=== PATIENT | female | born 1965 | race Caucasian/White ===

== ENCOUNTER 2016-11-13 14:58 | Emergency (ER) | payer MEDICAID | END 2016-11-13 17:35 | disposition home or self-care (01) | LOC: D.ER 14:58 | DX: S63.501A Unspecified sprain of right wrist, initial encounter (principal); W19.XXXA Unspecified fall, initial encounter; Y93.89 Activity, other specified; Y92.019 Unspecified place in single-family (private) house as the place of occurrence of the external cause; S70.01XA Contusion of right hip, initial encounter ==

== ENCOUNTER 2020-07-17 18:00 | Emergency (ER) | payer MEDICAID ==
[~2020-07-17] VITALS: Ht 152.4 cm; Wt 95.5 kg
[2020-07-17 18:07] VITALS: Ht 152.4 cm; Wt 95.5 kg
[2020-07-17] MEDS ORDERED: MOBIC7.5 MG PO ×2 (18:08→20:22)
[2020-07-17] MEDS ORDERED: NEURONTIN800 MG PO (18:09)
[2020-07-17] MEDS ORDERED: CELEXA20 MG PO (18:09)
[2020-07-17] MEDS ORDERED: KLONOPIN0.5 MG PO (18:10)
[2020-07-17] MEDS ORDERED: CYCLOBENZAPRINE10 MG PO (18:10)
[2020-07-17 18:53] LABS: BASOPHILS 0.3 % (0-2); EOSINOPHILS 1.6 % (0-7); HEMATOCRIT 38.2 % (36.0-48.0); HEMOGLOBIN 12.4 g/dL (12-16); IMMATURE GRANULOCYTES 0.4 % (0-5); LYMPHOCYTES 29.8 % (15-50); MCH 27.5 pg (26.0-34.0); MCHC 32.5 g/dL (31.0-37.0); MCV 84.7 fL (80.0-100.0); MEAN PLATELET VOLUME 9.5 fL (7.4-10.4); MONOCYTES 5.3 % (2-11); NEUTROPHILS 62.6 % (40-80); PLATELET COUNT 323 10x3/uL (130-400); RBC 4.51 10x6/uL (4.00-5.40); RDW 13.8 % (11.5-14.5); WBC 10.5 10x3/uL (4.8-10.8)
[2020-07-17 19:05] LABS: CALC OSMOLALITY 287 mosm/kg (275-300); CALCIUM 8.7 mg/dL (8.5-10.1); CARBON DIOXIDE 27.6 mmol/L (21.0-32.0); CHLORIDE - SERUM 107 mmol/L (98-107); CREATININE - SERUM 0.8 mg/dL (0.6-1.3); GLUCOSE 133 mg/dL (74-106); POTASSIUM - SERUM 3.7 mmol/L (3.5-5.1); SODIUM 143 mmol/L (136-145); UREA NITROGEN 14 mg/dL (7-18); eGFR NON AFRICAN AMERICAN 79 mL/min (90-120)
[2020-07-17 19:19] LABS: ALBUMIN 3.1 g/dL (3.4-5.0); ALKALINE PHOSPHATASE 57 U/L (30-120); ALT (SGPT) 18 U/L (10-68); BILIRUBIN - TOTAL 0.14 mg/dL (0.2-1.3); PROTEIN - SERUM 6.7 g/dL (6.4-8.2)
[2020-07-17 19:27] LABS: APTT 26.9 SECONDS (22.8-39.4); INR 0.88 (0.85-1.17); PROTIME 11.9 SECONDS (11.6-15.0)
[2020-07-17 20:30] VITALS: BP 132/84
== END 2020-07-17 19:20 | disposition home or self-care (01) ==
LOC: D.ER 18:00
PROVIDERS: Family Medicine
DX: M54.31 Sciatica, right side (principal); M54.10 Radiculopathy, site unspecified; M79.661 Pain in right lower leg

== ENCOUNTER 2020-07-27 14:17 | Inpatient (IN) | payer MEDICAID ==
[~2020-07-27] VITALS: Ht 152.4 cm; Wt 90.7 kg
[~2020-07-27 14:17] MED LIST: CELEXA20 MG PO; CYCLOBENZAPRINE10 MG PO; KLONOPIN0.5 MG PO; MOBIC7.5 MG PO; NEURONTIN800 MG PO
[2020-07-27 15:19] LABS: BILIRUBIN NEGATIVE (NEGATIVE); KETONE NEGATIVE (NEGATIVE); NITRITE NEGATIVE (NEGATIVE); UROBILINOGEN NORMAL mg/dL (< 2)
[2020-07-27 15:22] LABS: BACTERIA MANY HPF (NONE SEEN); WHITE CELLS - URINE >50 HPF (0-4)
[2020-07-27 15:34] LABS: BASOPHILS 1.1 % (0-2); EOSINOPHILS 7.5 % (0-7); HEMATOCRIT 37.2 % (36.0-48.0); HEMOGLOBIN 12.5 g/dL (12-16); IMMATURE GRANULOCYTES 2.2 % (0-5); LYMPHOCYTES 23.4 % (15-50); MCH 27.6 pg (26.0-34.0); MCHC 33.6 g/dL (31.0-37.0); MCV 82.1 fL (80.0-100.0); MEAN PLATELET VOLUME 9.5 fL (7.4-10.4); MONOCYTES 7.9 % (2-11); NEUTROPHILS 57.9 % (40-80); RBC 4.53 10x6/uL (4.00-5.40); RDW 14.2 % (11.5-14.5); WBC 10.9 10x3/uL (4.8-10.8)
[2020-07-27 15:35] LABS: PLATELET COUNT 211 10x3/uL (130-400)
[2020-07-27 15:58] LABS: ANION GAP 13.8 mmol/L (8-16); CALCIUM 7.6 mg/dL (8.5-10.1); CARBON DIOXIDE 21.5 mmol/L (21.0-32.0); POTASSIUM - SERUM 3.3 mmol/L (3.5-5.1)
--- NOTE | 2020-07-27 16:00 | NUR ---
NS STOP TIME CHARTED INCCORECTLY, STOP TIME FOR NS BOLUS WAS 1600 ZOSYN STOP TIME WAS 191
[2020-07-27 16:05] LABS: ALBUMIN 2.2 g/dL (3.4-5.0); BILIRUBIN - TOTAL 1.24 mg/dL (0.2-1.3); PROTEIN - SERUM 5.8 g/dL (6.4-8.2)
--- NOTE | 2020-07-27 21:03 | NUR ---
ARRIVED TOP FLOOR VIA WC. NO ACUTE DISTRESS NOTED. CONTINUING TO MONITOR
[2020-07-27 21:18] VITALS: BP 97/78; BMI 39.1
[2020-07-27 23:55] VITALS: BP 125/51
[2020-07-28 04:12] VITALS: BP 98/55
[2020-07-28 05:45] LABS: BASOPHILS 0.8 % (0-2); EOSINOPHILS 6.2 % (0-7); HEMATOCRIT 34.4 % (36.0-48.0); HEMOGLOBIN 11.2 g/dL (12-16); IMMATURE GRANULOCYTES 2.4 % (0-5); LYMPHOCYTES 20.8 % (15-50); MCH 27.2 pg (26.0-34.0); MCHC 32.6 g/dL (31.0-37.0); MCV 83.5 fL (80.0-100.0); MEAN PLATELET VOLUME 9.6 fL (7.4-10.4); MONOCYTES 11.5 % (2-11); NEUTROPHILS 58.3 % (40-80); PLATELET COUNT 220 10x3/uL (130-400); RBC 4.12 10x6/uL (4.00-5.40); RDW 14.7 % (11.5-14.5); WBC 13.2 10x3/uL (4.8-10.8)
[2020-07-28 05:47] LABS: ALBUMIN 2.1 g/dL (3.4-5.0); ANION GAP 13.6 mmol/L (8-16); BILIRUBIN - TOTAL 1.52 mg/dL (0.2-1.3); CALCIUM 7.4 mg/dL (8.5-10.1); CARBON DIOXIDE 22.4 mmol/L (21.0-32.0); CREATININE - SERUM 3.5 mg/dL (0.6-1.3); PROTEIN - SERUM 5.5 g/dL (6.4-8.2)
[2020-07-28 08:55] VITALS: BP 148/73
[2020-07-28 12:57] VITALS: BP 136/77
[2020-07-28 13:51] VITALS: BMI 39.0
[2020-07-28 16:12] VITALS: Ht 152.4 cm; Wt 90.7 kg
[2020-07-28 18:08] VITALS: BP 124/78
[2020-07-28 20:00] VITALS: BP 119/59; BP 136/82
--- NOTE | 2020-07-28 20:13 | NUR ---
PT WAS FOUND WALKING DOWN [address] LOOKING FOR A WAY TO GO DOWN STAIRS. SHE WAS TAKEN BACK TO HER ROOM AND A POSY PAD PUT ON HER BED AND THE ALARM TURNED ON. NO ACUTE DISTRESS NOTED. SHE IS CONFUSED ABOUT HER LOCATION AT TIMES. CONTINUING TO MONITOR
[2020-07-29] VITALS: BP 153/90
[2020-07-29 04:00] VITALS: BP 152/84
--- NOTE | 2020-07-29 05:59 | NUR ---
I have reviewed this patient and I concur with the Shift Assessment completed by the Licensed Practical Nurse today this shift.
[2020-07-29 07:11] LABS: ALBUMIN 1.8 g/dL (3.4-5.0); ANION GAP 15.4 mmol/L (8-16); BILIRUBIN - TOTAL 1.08 mg/dL (0.2-1.3); CALCIUM 7.3 mg/dL (8.5-10.1); CARBON DIOXIDE 20.8 mmol/L (21.0-32.0); CREATININE - SERUM 2.3 mg/dL (0.6-1.3); POTASSIUM - SERUM 4.2 mmol/L (3.5-5.1)
[2020-07-29 07:35] LABS: BASOPHILS 0.9 % (0-2); HEMOGLOBIN 10.9 g/dL (12-16); IMMATURE GRANULOCYTES 3.4 % (0-5); LYMPHOCYTES 23.7 % (15-50); MCH 27.6 pg (26.0-34.0); MCV 83.5 fL (80.0-100.0); MEAN PLATELET VOLUME 9.2 fL (7.4-10.4); MONOCYTES 9.8 % (2-11); NEUTROPHILS 53.2 % (40-80); PLATELET COUNT 224 10x3/uL (130-400); RBC 3.95 10x6/uL (4.00-5.40); RDW 15.2 % (11.5-14.5); WBC 12.5 10x3/uL (4.8-10.8)
[2020-07-29 09:08] VITALS: BP 176/104
--- NOTE | 2020-07-29 11:14 | NUR ---
IV STARTED THIS AM, YVETTE WELL, NO DISTRESS NOTED, FED BREAKFAST SO TEST POSTPONED TILL THIS BOUBACAR, CONT TO MONITOR
[2020-07-29 12:14] VITALS: BP 145/67
[2020-07-29 17:07] VITALS: BP 157/79
[2020-07-29 18:24] LABS: BILIRUBIN NEGATIVE (NEGATIVE); KETONE NEGATIVE (NEGATIVE); NITRITE NEGATIVE (NEGATIVE)
[2020-07-29 18:38] LABS: CREATININE - URINE 53.6 mg/dL (30-125); PRO/CRE RATIO URINE 0.7 mg/g; PROTEIN - URINE 38.9 mg/dL (0.0-11.9)
[2020-07-29 20:00] VITALS: BP 115/90
[2020-07-30] VITALS: BP 168/83
--- NOTE | 2020-07-30 01:17 | NUR ---
TEMP DOWN TO 102.1 AFTER TYLENOL GIVEN. BATHED AND COVERS REMOVED. WILL CONTINUE TO MONITOR HEADACHE BETTER. CALL LIGHT IN REACH
[2020-07-30 04:00] VITALS: BP 150/88
[2020-07-30 06:29] LABS: BASOPHILS 0.9 % (0-2); EOSINOPHILS 8.9 % (0-7); HEMOGLOBIN 10.7 g/dL (12-16); LYMPHOCYTES 25.1 % (15-50); MCH 27.5 pg (26.0-34.0); MCHC 33.4 g/dL (31.0-37.0); MCV 82.3 fL (80.0-100.0); MEAN PLATELET VOLUME 9.1 fL (7.4-10.4); MONOCYTES 12.4 % (2-11); NEUTROPHILS 49.7 % (40-80); PLATELET COUNT 246 10x3/uL (130-400); RBC 3.89 10x6/uL (4.00-5.40); WBC 13.8 10x3/uL (4.8-10.8)
[2020-07-30 07:26] LABS: ALBUMIN 1.8 g/dL (3.4-5.0); ANION GAP 13.3 mmol/L (8-16); BILIRUBIN - TOTAL 1.29 mg/dL (0.2-1.3); CALCIUM 7.6 mg/dL (8.5-10.1); CARBON DIOXIDE 20.8 mmol/L (21.0-32.0); CREATININE - SERUM 1.5 mg/dL (0.6-1.3); MAGNESIUM - SERUM 1.6 mg/dL (1.8-2.4); POTASSIUM - SERUM 4.1 mmol/L (3.5-5.1); PROTEIN - SERUM 4.9 g/dL (6.4-8.2)
[2020-07-30 09:25] VITALS: BP 159/80
[2020-07-30 13:10] VITALS: BP 158/88
--- NOTE | 2020-07-30 13:43 | MORECARE ---
CASE MANAGEMENT DISCHARGE SUMMARY PATIENT: IRENE CARTER UNIT: [id number] ADM DATE: 07/27/20 AGE: 55 : 69 SEX: F ROOM/BED: D.2207 AUTHOR: KRISH ROMAN PHYSICIAN: REFERRING PHYSICIAN: SMILEY FAJARDO DO DATE OF SERVICE: 07/30/20 Discharge Plan Patient Name: IRENE CARTER [facility] [facility] 1965 Planned Disposition: Home Anticipated Discharge Date: Discharge Date: Expected LOS: Initial Reviewer: [email or web address] Initial Review Date: 07/27/2020 Generated: 07/30/20 2:42 pm DCPIA - Discharge Planning Initial Assessment Updated by [email or web address]: Megan Jacobo on 07/30/20 1:38 pm * Is the patient Alert and Oriented? Yes * PCP SERINA * Pharmacy [facility] ON [facility] * Preadmission Environment Home with Family * ADLs Independent * Equipment Oxygen * List name and contact numbers for known caregivers / representatives who currently or will assist patient after discharge: YAKOV CARTER [phone] * Verbal permission to speak to the caregivers and representatives has been obtained from the patient. N/A * Community resources currently utilized None * Additional services required to return to the preadmission environment? No * Can the patient safely return to the preadmission environment? Yes * Has this patient been hospitalized within the prior 30 days at any hospital? No Patient Name: IRENE CARTER Page 41696 at 1343 All edits/amendments must be made on the electronic document DICTATION DATE: 07/30/20 1343 AUTOMOTIVE TIRE TESTING SUPERVISOR: CARMEL 07/30/20 1343 RPT#: [id number] DC DATE: STATUS: ADM IN [facility] [address] [place] [address] END OF REPORT
--- NOTE | 2020-07-30 13:54 | MORECARE ---
CASE MANAGEMENT DISCHARGE SUMMARY PATIENT: IRENE CARTER UNIT: [id number] ADM DATE: 07/27/20 AGE: 55 : 69 SEX: F ROOM/BED: D.2207 AUTHOR: KRISH ROMAN PHYSICIAN: REFERRING PHYSICIAN: SMILEY FAJARDO DO DATE OF SERVICE: 07/30/20 Discharge Plan Patient Name: IRENE CARTER Facility: [facility]:[place] : 1965 Planned Disposition: Home Anticipated Discharge Date: Discharge Date: Expected LOS: Initial Reviewer: [email or web address] Initial Review Date: 07/27/2020 Generated: 07/30/20 2:53 pm Comments DCP- Discharge Planning Updated by [id number]: Megan Jacobo on 07/30/20 12:[address] Patient Name: IRENE CARTER Admission Status: ER Accout number: [id number] Admission Date: 07-27-2020 : 1965 Admission Diagnosis:ACUTE KIDNEY FAILURE, UNSPECIFIED Attending: SMILEY FAJARDO Current LOS: 3 Anticipated DC Date: Planned Disposition: Home Primary Insurance: MEDICAID [place] Discharge Planning Comments: CM met with patient to complete initial dc planning assessment. CM educated patient on the CM role and verbal consent given by patient to complete assessment. Patient lives at home with her spouse where she is independent with her care. At discharge patient plans to return home and feels this is a safe discharge. CM discussed availability of home health, rehab services, and medical equipment. She stated that she has home O2 that she wears at night from [facility]. She stated that she is in the process on getting a CPAP. Her will be her compressed air pile driver operator home when she is discharged. Patient denied known discharge needs at this time. CM will continue to follow and will assist as needed with dc plans/needs. Outside Parts Salesman: Megan Jacobo DCPIA - Discharge Planning Initial Assessment Updated by [email or web address]: Megan Jacobo on 07/30/20 1:38 pm * Is the patient Alert and Oriented? Yes * PCP SERINA * Pharmacy [facility] ON [address] * Preadmission Environment Home with Family * ADLs Independent * Equipment Oxygen * List name and contact numbers for known caregivers / representatives who currently or will assist patient after discharge: YAKOV CARTER [phone] * Verbal permission to speak to the caregivers and representatives has been obtained from the patient. N/A * Community resources currently utilized None * Additional services required to return to the preadmission environment? No * Can the patient safely return to the preadmission environment? Yes * Has this patient been hospitalized within the prior 30 days at any hospital? No Last DP export: 07/30/20 12:43 p Patient Name: IRENE CARTER Page 85152 at 1354 All edits/amendments must be made on the electronic document DICTATION DATE: 07/30/20 135 MACHINE STONE POLISHER: CARMEL 07/30/20 1353 RPT#: [id number] DC DATE: STATUS: ADM IN [facility] [address] [place] [address] END OF REPORT
[2020-07-30 17:48] VITALS: BP 183/97
[2020-07-31] VITALS (12 sets, daily range): BP systolic 126–192; BP diastolic 64–95
[2020-07-31 06:43] LABS: BASOPHILS 1.1 % (0-2); EOSINOPHILS 10.8 % (0-7); HEMATOCRIT 32.2 % (36.0-48.0); HEMOGLOBIN 10.6 g/dL (12-16); IMMATURE GRANULOCYTES 3.6 % (0-5); LYMPHOCYTES 28.4 % (15-50); MCHC 32.9 g/dL (31.0-37.0); MCV 82.1 fL (80.0-100.0); MONOCYTES 12.8 % (2-11); NEUTROPHILS 43.3 % (40-80); PLATELET COUNT 269 10x3/uL (130-400); RBC 3.92 10x6/uL (4.00-5.40); RDW 15.2 % (11.5-14.5); WBC 14.1 10x3/uL (4.8-10.8)
[2020-07-31 07:14] LABS: ANION GAP 14.2 mmol/L (8-16); BILIRUBIN - TOTAL 1.01 mg/dL (0.2-1.3); CALCIUM 7.6 mg/dL (8.5-10.1); CARBON DIOXIDE 21.9 mmol/L (21.0-32.0); CREATININE - SERUM 1.2 mg/dL (0.6-1.3); MAGNESIUM - SERUM 1.5 mg/dL (1.8-2.4); POTASSIUM - SERUM 4.1 mmol/L (3.5-5.1); PROTEIN - SERUM 5.1 g/dL (6.4-8.2)
--- NOTE | 2020-07-31 11:40 | NUR ---
1138 - PT REPORTS VERY NAUSEOUS. ORDERS RECEIVED
--- NOTE | 2020-07-31 13:17 | NUR ---
Nutrition follow-up: Pt out of room for lap lucina at time of RD visit NPO for surgery Labs reviewed Wt: 199# RDN will monitor patients diet advancement and tolerance. RDN following.
--- NOTE | 2020-07-31 20:00 | NUR ---
PATIENT RESTING IN BED WITH AT BEDSIDE. NO S/S OF ACUTE DISTRESS. NO C/O AT THIS TIME. PATIENT IS ON 1L OF O2. PATIENT HAS RIGHT FOREARM, NORMAL SALINE @ 125 ML/HR. IV IS PATENT WITHOUT REDNESS, SWELLING, OR TENDERNESS. PATIENT HAS 4 LAP SITES ON ABDOMEN. PATIENT IS UP AD KILLIAN TO THE BATHROOM. CALL LIGHT WITHIN REACH. WILL CONTINUE TO MONITOR.
--- NOTE | 2020-08-01 01:56 | NUR ---
I have reviewed this patient and I concur with the Shift Assessment completed by the Licensed Practical Nurse today this shift.
[2020-08-01 05:46] LABS: BASOPHILS 0.3 % (0-2); EOSINOPHILS 0.3 % (0-7); HEMATOCRIT 30.4 % (36.0-48.0); HEMOGLOBIN 9.8 g/dL (12-16); IMMATURE GRANULOCYTES 2.6 % (0-5); LYMPHOCYTES 19.3 % (15-50); MCH 26.9 pg (26.0-34.0); MCHC 32.2 g/dL (31.0-37.0); MCV 83.5 fL (80.0-100.0); MEAN PLATELET VOLUME 9.2 fL (7.4-10.4); MONOCYTES 10.8 % (2-11); NEUTROPHILS 66.7 % (40-80); PLATELET COUNT 314 10x3/uL (130-400); RBC 3.64 10x6/uL (4.00-5.40); RDW 15.7 % (11.5-14.5); WBC 14.6 10x3/uL (4.8-10.8)
[2020-08-01 05:57] VITALS: BP 154/76
[2020-08-01 06:03] LABS: ALBUMIN 2.1 g/dL (3.4-5.0); ANION GAP 11.3 mmol/L (8-16); BILIRUBIN - TOTAL 0.66 mg/dL (0.2-1.3); CALCIUM 7.9 mg/dL (8.5-10.1); CARBON DIOXIDE 23.2 mmol/L (21.0-32.0); CREATININE - SERUM 1.1 mg/dL (0.6-1.3); MAGNESIUM - SERUM 1.7 mg/dL (1.8-2.4); POTASSIUM - SERUM 4.5 mmol/L (3.5-5.1); PROTEIN - SERUM 5.7 g/dL (6.4-8.2)
[2020-08-01 09:27] VITALS: BP 187/88
[2020-08-01 12:00] VITALS: BP 145/76
[2020-08-01] MEDS ORDERED: ULTRAM50 MG PO ×3 (14:09→14:12)
--- NOTE | 2020-08-01 15:07 | NUR ---
DISCHARGE PAPERWORK SIGNED, ALL QUESTIONS ANSWERED. IV TO RIGHT FOREARM DC'D, TIP INTACT. ESCORTED OUT VIA WHEELCHAIR.
--- NOTE | 2020-08-03 08:47 | MORECARE ---
CASE MANAGEMENT DISCHARGE SUMMARY PATIENT: IRENE CARTER UNIT: [id number] ADM DATE: 07/27/20 AGE: 55 : 69 SEX: F ROOM/BED: D.2207 AUTHOR: KRISH ROMAN PHYSICIAN: REFERRING PHYSICIAN: SMILEY FAJARDO DO DATE OF SERVICE: 08/03/20 Discharge Plan Patient Name: IRENE CARTER Facility: [facility]:[place] : 1965 Planned Disposition: Home Anticipated Discharge Date: Discharge Date: 08/01/2020 Expected LOS: Initial Reviewer: [email or web address] Initial Review Date: 07/27/2020 Generated: 08/03/20 9:47 am DCP- Discharge Planning Updated by [email or web address]: Megan Jacobo on 07/30/20 12:[address] Patient Name: IRENE CARTER Admission Status: ER Accout number: [id number] Admission Date: 07-27-2020 : 1965 Admission Diagnosis:ACUTE KIDNEY FAILURE, UNSPECIFIED Attending: SMILEY FAJARDO Current LOS: 3 Anticipated DC Date: Planned Disposition: Home Primary Insurance: MEDICAID [place] Discharge Planning Comments: CM met with patient to complete initial dc planning assessment. CM educated patient on the CM role and verbal consent given by patient to complete assessment. Patient lives at home with her spouse where she is independent with her care. At discharge patient plans to return home and feels this is a safe discharge. CM discussed availability of home health, rehab services, and medical equipment. She stated that she has home O2 that she wears at night from [facility]. She stated that she is in the process on getting a CPAP. Her will be her jukebox route driver home when she is discharged. Patient denied known discharge needs at this time. CM will continue to follow and will assist as needed with dc plans/needs. Dance Studio Manager: Megan Jacobo DCPIA - Discharge Planning Initial Assessment Updated by [email or web address]: Megan Jacobo on 07/30/20 1:38 pm * Is the patient Alert and Oriented? Yes * PCP SERINA * Pharmacy [facility] [address] * Preadmission Environment Home with Family * ADLs Independent * Equipment Oxygen * List name and contact numbers for known caregivers / representatives who currently or will assist patient after discharge: YAKOV CARTER [phone] * Verbal permission to speak to the caregivers and representatives has been obtained from the patient. N/A * Community resources currently utilized None * Additional services required to return to the preadmission environment? No * Can the patient safely return to the preadmission environment? Yes * Has this patient been hospitalized within the prior 30 days at any hospital? No Last DP export: 07/30/20 12:54 p Patient Name: IRENE CARTER Page [phone] at 0847 All edits/amendments must be made on the electronic document DICTATION DATE: 08/03/20846 HELMET HAT BRIM CUTTER: CARMEL 08/03/20846 RPT#: [id number] DC DATE:08/01/20 STATUS: DIS IN [facility] [address] [place] [address] END OF REPORT
--- NOTE | 2020-08-04 09:49 | OP ---
PATIENT NAME: IRENE CARTER MEDICAL RECORD: [id number] :[birth year] LOCATION:D.MS [place] ADMISSION DATE:07/27/20 SURGEON: GRIFFIN SIFUENTES MD DATE OF OPERATION: 07/31/2020 PREOPERATIVE DIAGNOSES: 1. Acute cholecystitis with gallstones. 2. UTI. 3. Acute renal failure. 4. Dehydration. 5. Shock liver. POSTOPERATIVE DIAGNOSES: 1. Acute cholecystitis with gallstones. 2. UTI. 3. Acute renal failure. 4. Dehydration. 5. Shock liver. PROCEDURE: Laparoscopic cholecystectomy. SURGEON: Griffin Sifuentes MD REPORT OF PROCEDURE: The patient's abdomen was prepped and draped in sterile fashion. A cutdown was made on the superior aspect of the umbilicus. The 0 Vicryls were placed in the fascia bilaterally and the fascia was incised with 15 blade. I then bluntly entered the peritoneal cavity and placed a 12 mm Nicolas port. Under direct visualization, a 5 mm trocar was placed in the epigastrium and two more 5 mm trocars were placed in the right subcostal region. The gallbladder was grasped and elevated. The cystic artery and cystic duct were dissected free and these were clipped proximally and distally and ligated in standard fashion. The gallbladder had a lot of acute inflammatory changes present with a significant amount of edema. There was a large amount of gallstones present inside the gallbladder. We dissected the gallbladder off of the liver bed and placed it in the right upper quadrant. Any bleeding from the liver bed was then treated with electrocautery. The ports and insufflation were then removed and the gallbladder was taken out through the umbilicus. The umbilical fascia was closed with interrupted 0 Vicryls times 3. The wounds were then irrigated out with normal saline and infused with 10 mL of 0.25% Marcaine with epinephrine. The skin incisions were all closed with subcutaneous 5-0 Monocryl and dressed appropriately. COMPLICATIONS: None. CONDITION: Stable. ANESTHESIA: General endotracheal and local. BLOOD LOSS: 50 mL. NTS:[id number] Voice Confirmation ID: [id number] DOCUMENT ID: [id number] OPERATIVE REPORT [id number] IRENE CARTER GRIFFIN SIFUENTES MD at 0949 CC: [id number] DICTATION DATE: 07/31/20 1040 SHELLFISH PROCESSING LABORER: 07/31/202046 DIS IN 08/01/20 [facility] [address] [facility]
== END 2020-08-01 15:41 | disposition home or self-care (01) | DRG 987 ==
LOC: D.ER 14:17 → D.MS 18:30
PROVIDERS: Internal Medicine Nephrology; Surgery; ADMIT Family Medicine; ATTEND Family Medicine
PROC: 0FT44ZZ Resection of Gallbladder, Percutaneous Endoscopic Approach (ICD-10-PCS; principal; 2020-07-31 11:30)
DX: N17.9 Acute kidney failure, unspecified (principal); K72.00 Acute and subacute hepatic failure without coma; N39.0 Urinary tract infection, site not specified; E87.1 Hypo-osmolality and hyponatremia; K80.10 Calculus of gallbladder with chronic cholecystitis without obstruction; E87.6 Hypokalemia; R73.9 Hyperglycemia, unspecified; F41.8 Other specified anxiety disorders; E86.0 Dehydration

== ENCOUNTER 2020-08-06 07:44 | Inpatient (IN) | payer MEDICAID ==
[~2020-08-06] VITALS: Ht 152.4 cm; Wt 90.9 kg
[~2020-08-06 07:44] MED LIST changes: +ULTRAM50 MG PO
[2020-08-06 08:40] LABS: BASOPHILS 0.2 % (0-2); EOSINOPHILS 9.1 % (0-7); HEMATOCRIT 35.6 % (36.0-48.0); HEMOGLOBIN 11.5 g/dL (12-16); LYMPHOCYTES 3.3 % (15-50); MCH 27.4 pg (26.0-34.0); MCHC 32.3 g/dL (31.0-37.0); MCV 84.8 fL (80.0-100.0); MEAN PLATELET VOLUME 8.9 fL (7.4-10.4); MONOCYTES 2.3 % (2-11); NEUTROPHILS 84.1 % (40-80); RDW 15.1 % (11.5-14.5); WBC 12.6 10x3/uL (4.8-10.8)
[2020-08-06 08:46] LABS: PLATELET COUNT 377 10x3/uL (130-400)
[2020-08-06 08:59] LABS: CALCIUM 8.5 mg/dL (8.5-10.1); CARBON DIOXIDE 26.1 mmol/L (21.0-32.0); CREATININE - SERUM 1.8 mg/dL (0.6-1.3); POTASSIUM - SERUM 4.1 mmol/L (3.5-5.1)
[2020-08-06 09:00] LABS: BILIRUBIN NEGATIVE (NEGATIVE); KETONE NEGATIVE (NEGATIVE); NITRITE NEGATIVE (NEGATIVE); UROBILINOGEN 4 mg/dL (< 2)
[2020-08-06 09:03] LABS: BACTERIA FEW HPF (NONE SEEN); WHITE CELLS - URINE 0-5 HPF (0-4)
[2020-08-06 09:04] LABS: ALBUMIN 2.6 g/dL (3.4-5.0); BILIRUBIN - TOTAL 0.97 mg/dL (0.2-1.3); C-REACTIVE PROTEIN 6.9 mg/dL (0.0-0.9); PROTEIN - SERUM 6.4 g/dL (6.4-8.2)
[2020-08-06 10:00] VITALS: BP 98/54
[2020-08-06 12:00] VITALS: BP 99/48
--- NOTE | 2020-08-06 12:30 | NUR ---
PATIENTS ORAL TEMP 102.4, 650MG TYLENOL PO PER ORDERS.
[2020-08-06 14:00] VITALS: BP 95/48
--- NOTE | 2020-08-06 14:00 | NUR ---
ORAL TEMP 98.8, PATIENT RESTING WITH EYES CLOSED O2 SAT 90%, 2LTRS O2 VIA N/C PLACED ON PATIENT, SAT INCREASED TO 97%.
--- NOTE | 2020-08-06 14:30 | NUR ---
SPOKE WITH DR. PAIZ AND DR. ELLIS BOTH ABOUT CONSULT ON PATIENT.
--- NOTE | 2020-08-06 15:30 | NUR ---
PATIENT TO RADIOLOGY FOR SCAN VIA STRETCHER
--- NOTE | 2020-08-06 16:53 | NUR ---
PATIENT RETURNED FROM RAD VIA STRETCHER NO PROBLEMS.
[2020-08-06 17:47] VITALS: BP 150/63; Ht 152.4 cm; Wt 90.9 kg
[2020-08-06 17:50] VITALS: BP 150/63
[2020-08-06 20:00] VITALS: BP 146/73
[2020-08-06 21:16] LABS: UDS - AMPHET NEGATIVE QUAL (NEGATIVE); UDS - BARB NEGATIVE QUAL (NEGATIVE); UDS - BENZO POSITIVE QUAL (NEGATIVE); UDS - COCAINE NEGATIVE QUAL (NEGATIVE); UDS - OPIATE NEGATIVE QUAL (NEGATIVE); UDS - PCP NEGATIVE QUAL (NEGATIVE); UDS - THC NEGATIVE QUAL (NEGATIVE)
[2020-08-07] VITALS (10 sets, daily range): BP systolic 102–154; BP diastolic 44–85
[2020-08-07 07:00] LABS: BASOPHILS 0.2 % (0-2); EOSINOPHILS 12.6 % (0-7); HEMATOCRIT 30.6 % (36.0-48.0); HEMOGLOBIN 10.1 g/dL (12-16); IMMATURE GRANULOCYTES 0.6 % (0-5); LYMPHOCYTES 4.5 % (15-50); MCH 27.4 pg (26.0-34.0); MCV 82.9 fL (80.0-100.0); MEAN PLATELET VOLUME 9.1 fL (7.4-10.4); MONOCYTES 4.4 % (2-11); NEUTROPHILS 77.7 % (40-80); PLATELET COUNT 332 10x3/uL (130-400); RBC 3.69 10x6/uL (4.00-5.40); RDW 15.2 % (11.5-14.5); WBC 9.5 10x3/uL (4.8-10.8)
[2020-08-07 07:23] LABS: ALBUMIN 2.3 g/dL (3.4-5.0); ANION GAP 14.9 mmol/L (8-16); BILIRUBIN - TOTAL 1.46 mg/dL (0.2-1.3); CALCIUM 7.5 mg/dL (8.5-10.1); CARBON DIOXIDE 20.8 mmol/L (21.0-32.0); CREATININE - SERUM 1.4 mg/dL (0.6-1.3); MAGNESIUM - SERUM 1.5 mg/dL (1.8-2.4); PHOSPHOROUS 2.3 mg/dL (2.5-4.9); POTASSIUM - SERUM 3.7 mmol/L (3.5-5.1); PROTEIN - SERUM 5.3 g/dL (6.4-8.2)
[2020-08-07 17:01] LABS: APTT 34.2 SECONDS (22.8-39.4); INR 1.39 (0.85-1.17); PROTIME 16.9 SECONDS (11.6-15.0)
--- NOTE | 2020-08-07 17:58 | NUR ---
PATIENT BACK FROM IR. TEMP 100.3. VS STABLE. WANTS TO EAT. WILL CHECK DIET AND ORDER FOOD IF ABLE. NO DRAIN PLACED. CALL LIGHT WITHIN REACH.
--- NOTE | 2020-08-07 18:32 | NUR ---
PATIENT SITTING UP IN BED EATING. NO COMPLAINTS OR SIGNS OF DISTRESS. CALL LIGHT WITHIN REACH.
[2020-08-07 20:23] LABS: MACROPHAGES BF 5 %; NEUT - BF 86 %
[2020-08-08 01:10] VITALS: BP 113/71
[2020-08-08 05:12] VITALS: BP 105/57
[2020-08-08 05:56] LABS: BASOPHILS 0.7 % (0-2); HEMATOCRIT 29.7 % (36.0-48.0); HEMOGLOBIN 9.7 g/dL (12-16); IMMATURE GRANULOCYTES 0.5 % (0-5); LYMPHOCYTES 12.1 % (15-50); MCH 27.3 pg (26.0-34.0); MCHC 32.7 g/dL (31.0-37.0); MCV 83.7 fL (80.0-100.0); MEAN PLATELET VOLUME 9.7 fL (7.4-10.4); MONOCYTES 9.1 % (2-11); NEUTROPHILS 53.6 % (40-80); PLATELET COUNT 343 10x3/uL (130-400); RBC 3.55 10x6/uL (4.00-5.40); RDW 15.8 % (11.5-14.5); WBC 7.3 10x3/uL (4.8-10.8)
--- NOTE | 2020-08-08 06:15 | NUR ---
ALERT AND ORENTED ABLE TO VOICE NEEDS AND WANTS TO STAFF. DRESSING CDI TO RIGHT UPPER QUQD THIS AM. IV TO LEFT AC, WITH NS AT 100 ML/HR CALL LIGHT AND WATER IN REACH. NO NEEDS NOTED OR STATED , NO S/S OF DISTRESS
[2020-08-08 06:21] LABS: ALBUMIN 2.1 g/dL (3.4-5.0); ANION GAP 10.2 mmol/L (8-16); BILIRUBIN - TOTAL 1.06 mg/dL (0.2-1.3); CALCIUM 7.8 mg/dL (8.5-10.1); CARBON DIOXIDE 25.6 mmol/L (21.0-32.0); CREATININE - SERUM 1.1 mg/dL (0.6-1.3); POTASSIUM - SERUM 3.8 mmol/L (3.5-5.1); PROTEIN - SERUM 5.5 g/dL (6.4-8.2)
--- NOTE | 2020-08-08 07:15 | NUR ---
RECEIVED BEDSIDE REPORT. PT SITTING UP IN BED, A&O X4. PIV IN LEFT FOREARM, PATENT AND INFUSING, NO REDNESS OR SWELLING. INCISION TO RIGHT UPPER ABD, DRSG C/D/I. PT ABLE TO AMBULATE WITHOUT ASSIST. EDUCATED PT ON CL AND NEEDS, VERBALIZED UNDERSTANDING. BED LOW, RAILS X2. CL IN REACH, WILL CONTINUE TO MONITOR.
[2020-08-08 08:00] VITALS: BP 114/56
--- NOTE | 2020-08-08 08:00 | NUR ---
PIV IN LEFT AC INFILTRATED, REMOVED CATHETER INTACT, APPLIED GAUZE AND PRESSURE. PT TOLERATED WELL. BED LOW, CL IN REACH.
[2020-08-08 08:12] LABS: HEPATITIS C ANTIBODY <0.1 S/CO RAT (0.0-0.9)
[2020-08-08 09:14] LABS: MAGNESIUM - SERUM 1.8 mg/dL (1.8-2.4)
[2020-08-08 09:18] LABS: PHOSPHOROUS 1.5 mg/dL (2.5-4.9)
--- NOTE | 2020-08-08 10:45 | NUR ---
RESTARTED PIV TO LEFT FOREARM, 22 GAUGE, FLUSHED 10ML, NO REDNESS OR SWELLING. PT TOLERATED WELL. BED LOW, RAILS X2. CL IN REACH.
--- NOTE | 2020-08-08 12:15 | NUR ---
PT C/O PAIN IN HEAD 05/15, PROVIDED MEDS PER ORDER. PT TOLERATED WELL, CL IN REACH, WILL CONTINUE TO MONITOR.
--- NOTE | 2020-08-08 14:15 | NUR ---
ASSISTED PT TO BR, URINE CLEAR, YELLOW. PT TOLERATED WELL. CL IN REACH, WILL CONTINUE TO MONITOR.
[2020-08-08 16:00] VITALS: BP 149/81
--- NOTE | 2020-08-08 16:05 | NUR ---
I have reviewed this patient and I concur with the Shift Assessment completed by the Licensed Practical Nurse today this shift.
--- NOTE | 2020-08-08 20:00 | NUR ---
ALERT RESTING IN BED DENIES PAIN OR NEEDS AT THSI TIME, SEE SHIFT ASSESSEMNT, CALL LIGHT IN REACH
[2020-08-08 21:35] VITALS: BP 126/75
[2020-08-09 01:23] VITALS: BP 157/85
[2020-08-09 05:30] LABS: EOSINOPHILS 27.9 % (0-7); HEMATOCRIT 29.3 % (36.0-48.0); HEMOGLOBIN 9.5 g/dL (12-16); IMMATURE GRANULOCYTES 0.5 % (0-5); LYMPHOCYTES 21.3 % (15-50); MCH 27.1 pg (26.0-34.0); MCHC 32.4 g/dL (31.0-37.0); MCV 83.5 fL (80.0-100.0); MEAN PLATELET VOLUME 9.7 fL (7.4-10.4); MONOCYTES 9.7 % (2-11); NEUTROPHILS 39.6 % (40-80); PLATELET COUNT 362 10x3/uL (130-400); RBC 3.51 10x6/uL (4.00-5.40); RDW 15.8 % (11.5-14.5); WBC 6.1 10x3/uL (4.8-10.8)
[2020-08-09 05:31] VITALS: BP 132/84
[2020-08-09 05:49] LABS: ANION GAP 12.3 mmol/L (8-16); BILIRUBIN - TOTAL 0.89 mg/dL (0.2-1.3); CALCIUM 7.8 mg/dL (8.5-10.1); CARBON DIOXIDE 22.3 mmol/L (21.0-32.0); CREATININE - SERUM 0.9 mg/dL (0.6-1.3); POTASSIUM - SERUM 3.6 mmol/L (3.5-5.1); PROTEIN - SERUM 5.2 g/dL (6.4-8.2)
--- NOTE | 2020-08-09 08:03 | NUR ---
RESTING IN BED, NO DISTRESS NOTED, IV INFUSING, CONT TO MONITOR PAIN
[2020-08-09 08:36] VITALS: BP 152/82
[2020-08-09] MEDS ORDERED: NYSTATIN1 PWD TOPICAL (11:20)
--- NOTE | 2020-08-09 12:51 | NUR ---
TO MRI PER W/C
[2020-08-09 16:22] VITALS: BP 164/79
--- NOTE | 2020-08-09 19:15 | NUR ---
RECIEVED BEDSIDE REPORT. PT LAYING IN BED, EYES CLOSED, EVEN RESPIRATIONS. PIV TO LEFT FOREARM, PATENT AND INFUSING, NO REDNESS OR SWELLING. BED LOW, CL IN REACH. WILL CONTINUE TO MONITOR.
--- NOTE | 2020-08-09 20:30 | NUR ---
ASSISTED PT TO BR. PT TOLERATED WELL. C/O AIR BEING TO COLD, ADJUSTED TEMP. ASSESSED ABD DRSG TO RIGHT SIDE, DRSG C/D/I. EDUCATED PT ON CL AND NEEDS, VERBALIZED UNDERSTANDING. BED LOW, RAILS X2. CL IN REACH, WILL CONTINUE TO MONITOR.
[2020-08-09 21:08] VITALS: BP 145/80
--- NOTE | 2020-08-09 22:00 | NUR ---
PT REFUSED INSULIN, STATES SHE JUST DRANK 2 KRISTAN SUNS. EDUCATED PT THAT WE WILL RECHECK BS AT 0430, VERBALIZED UNDERSTANDING.
--- NOTE | 2020-08-10 01:05 | NUR ---
PT LAYING IN BED, EYES CLOSED, EVEN RESPIRATIONS. BED LOW, CL IN REACH.
[2020-08-10 05:30] VITALS: BP 136/81
[2020-08-10 06:14] LABS: ALBUMIN 2.1 g/dL (3.4-5.0); ANION GAP 10.9 mmol/L (8-16); BILIRUBIN - TOTAL 0.82 mg/dL (0.2-1.3); CALCIUM 8.1 mg/dL (8.5-10.1); POTASSIUM - SERUM 3.9 mmol/L (3.5-5.1); PROTEIN - SERUM 5.3 g/dL (6.4-8.2)
[2020-08-10 07:18] LABS: HEMATOCRIT 29.6 % (36.0-48.0); HEMOGLOBIN 9.6 g/dL (12-16); MCH 27.3 pg (26.0-34.0); MCHC 32.4 g/dL (31.0-37.0); MCV 84.1 fL (80.0-100.0); MEAN PLATELET VOLUME 9.9 fL (7.4-10.4); PLATELET COUNT 372 10x3/uL (130-400); RBC 3.52 10x6/uL (4.00-5.40); RDW 16.1 % (11.5-14.5); WBC 6.7 10x3/uL (4.8-10.8)
--- NOTE | 2020-08-10 07:32 | NUR ---
ALERT AND ORIENTED. LUNGS CLEAR BILATERALLY. HEART SOUNDS S1 AND S2 HEARD IN ALL [place]. BOWEL SOUNDS ACTIVE X 4. IV TO LFA PATENT WITHOUT REDNESS. DENIES NEEDS. BED LOW. CALL DYER AND PERSONAL ITEMS IN REACH. WILL CONTINUE TO MONITOR.
[2020-08-10 07:54] LABS: EOSINOPHILS 28 % (0-7); LYMPHOCYTES 28 % (15-50); MONOCYTES 6 % (2-11); NEUTROPHILS 38 % (40-80); PLATELET ESTIMATE NORMAL
[2020-08-10 09:05] VITALS: BP 141/95
[2020-08-10 12:47] VITALS: BP 129/87
--- NOTE | 2020-08-10 13:01 | MORECARE ---
CASE MANAGEMENT DISCHARGE SUMMARY PATIENT: IRENE CARTER UNIT: [id number] ADM DATE: 08/06/20 AGE: 55 : 69 SEX: F ROOM/BED: D.2204 AUTHOR: KRISH ROMAN PHYSICIAN: REFERRING PHYSICIAN: YAKOV SMITH MD DATE OF SERVICE: 08/10/20 Discharge Plan Patient Name: IRENE CARTER Facility: [facility]:[place] : 1965 Planned Disposition: Home with Home Health Anticipated Discharge Date: Discharge Date: Expected LOS: Initial Reviewer: [email or web address] Initial Review Date: 08/06/2020 Generated: 08/10/20 2:01 pm DCPIA - Discharge Planning Initial Assessment Updated by [email or web address]: Megan Jacobo on 08/10/20 12:59 pm * Is the patient Alert and Oriented? Yes * PCP SERINA * Pharmacy [facility] * Preadmission Environment Home with Family * ADLs Independent * Equipment Oxygen * List name and contact numbers for known caregivers / representatives who currently or will assist patient after discharge: YAKOV CARTER [phone] * Verbal permission to speak to the caregivers and representatives has been obtained from the patient. Yes * Community resources currently utilized None * Additional services required to return to the preadmission environment? Yes * Can the patient safely return to the preadmission environment? Yes * Has this patient been hospitalized within the prior 30 days at any hospital? Yes Patient Name: IRENE CARTER Page 90790 at 1301 All edits/amendments must be made on the electronic document DICTATION DATE: 08/10/20 1301 BOTTLE WASHER MACHINE: CARMEL 08/10/20 1301 RPT#: [id number] DC DATE: STATUS: ADM IN [facility] [address] [place] [address] END OF REPORT
--- NOTE | 2020-08-10 13:08 | MORECARE ---
CASE MANAGEMENT DISCHARGE SUMMARY PATIENT: IRENE CARTER UNIT: [id number] ADM DATE: 08/06/20 AGE: 55 : 69 SEX: F ROOM/BED: D.2204 AUTHOR: KRISH ROMAN PHYSICIAN: REFERRING PHYSICIAN: YAKOV SMITH MD DATE OF SERVICE: 08/10/20 Discharge Plan Patient Name: IRENE CARTER Facility: [facility]:[place] : 1965 Planned Disposition: Home with Home Health Anticipated Discharge Date: Discharge Date: Expected LOS: Initial Reviewer: [email or web address] Initial Review Date: 08/06/2020 Generated: 08/10/20 2:07 pm Comments DCP- Discharge Planning Updated by [email or web address]: Megan Jacobo on 08/10/20 12:[address] Patient Name: IRENE CARTER Admission Status: ER Accout number: [id number] Admission Date: 08-06-2020 : 1965 Admission Diagnosis:POSTPROC SEROMA OF SKIN, SUBCU FOLLOWING OTHER PROCEDUR Attending: YAKOV SMITH Current LOS: 4 Anticipated DC Date: Planned Disposition: Home with Home Health Primary Insurance: MEDICAID [place] Discharge Planning Comments: CM met with patient to complete initial dc planning assessment. CM educated patient on the CM role and verbal consent given by patient to complete assessment. Patient lives at home with her where she stated that she is independent with her care. At discharge patient plans to return home and feels this is a safe discharge. CM discussed availability of home health, rehab services, and medical equipment. She uses O2 at night. Patient stated that she went to her PCP and was not right and came back to the hospital. She is agreeable to home health, she didn't care about what company. I have sent the referral to [facility]. TAMMY signed. CM will continue to follow and will assist as needed with dc plans/needs. Brazer Helper Induction: Megan Jacobo DCPIA - Discharge Planning Initial Assessment Updated by [email or web address]: Megan Jacobo on 08/10/20 12:59 pm * Is the patient Alert and Oriented? Yes * PCP SERINA * Pharmacy [facility] * Preadmission Environment Home with Family * ADLs Independent * Equipment Oxygen * List name and contact numbers for known caregivers / representatives who currently or will assist patient after discharge: YAKOV CARTER [phone] * Verbal permission to speak to the caregivers and representatives has been obtained from the patient. Yes * Community resources currently utilized None * Additional services required to return to the preadmission environment? Yes * Can the patient safely return to the preadmission environment? Yes * Has this patient been hospitalized within the prior 30 days at any hospital? Yes Last DP export: 08/10/20 12:01 p Patient Name: IRENE CARTER Page 91596 at 1308 All edits/amendments must be made on the electronic document DICTATION DATE: 08/10/201307 PRODUCTION MECHANIC: CARMEL 08/10/20 130 RPT#: [id number] DC DATE: STATUS: ADM IN [facility] [address] [place] [address] END OF REPORT
--- NOTE | 2020-08-10 14:17 | MORECARE ---
CASE MANAGEMENT DISCHARGE SUMMARY PATIENT: IRENE CARTER UNIT: [id number] ADM DATE: 08/06/20 AGE: 55 : 69 SEX: F ROOM/BED: D.2204 AUTHOR: KRISH ROMAN PHYSICIAN: REFERRING PHYSICIAN: YAKOV SMITH MD DATE OF SERVICE: 08/10/20 Discharge Plan Patient Name: IRENE CARTER Facility: [facility]:[place] : 1965 Planned Disposition: Home with Home Health Anticipated Discharge Date: Discharge Date: Expected LOS: Initial Reviewer: [email or web address] Initial Review Date: 08/06/2020 Generated: 08/10/20 3:16 pm Comments DCP- Discharge Planning Updated by [email or web address]: Megan Jacobo on 08/10/20 12:[address] Patient Name: IRENE CARTER Admission Status: ER Accout number: [id number] Admission Date: 08-06-2020 : 1965 Admission Diagnosis:POSTPROC SEROMA OF SKIN, SUBCU FOLLOWING OTHER PROCEDUR Attending: YAKOV SMITH Current LOS: 4 Anticipated DC Date: Planned Disposition: Home with Home Health Primary Insurance: MEDICAID [place] Discharge Planning Comments: CM met with patient to complete initial dc planning assessment. CM educated patient on the CM role and verbal consent given by patient to complete assessment. Patient lives at home with her where she stated that she is independent with her care. At discharge patient plans to return home and feels this is a safe discharge. CM discussed availability of home health, rehab services, and medical equipment. She uses O2 at night. Patient stated that she went to her PCP and was not right and came back to the hospital. She is agreeable to home health, she didn't care about what company. I have sent the referral to [facility]. TAMMY signed. CM will continue to follow and will assist as needed with dc plans/needs. Plate Grinder: Megan Jacobo DCPIA - Discharge Planning Initial Assessment Updated by [email or web address]: Megan Jacobo on 08/10/20 12:59 pm * Is the patient Alert and Oriented? Yes * PCP SERINA * Pharmacy [facility] * Preadmission Environment Home with Family * ADLs Independent * Equipment Oxygen * List name and contact numbers for known caregivers / representatives who currently or will assist patient after discharge: YAKOV CARTER [phone] * Verbal permission to speak to the caregivers and representatives has been obtained from the patient. Yes * Community resources currently utilized None * Additional services required to return to the preadmission environment? Yes * Can the patient safely return to the preadmission environment? Yes * Has this patient been hospitalized within the prior 30 days at any hospital? Yes External Providers External Provider: [facility] Next Contact Date: Service Request Date: Service Type: Resolution: Reviewer: Comments: Last DP export: 08/10/20 12:08 p Patient Name: IRENE CARTER Page 57039 at 1417 All edits/amendments must be made on the electronic document DICTATION DATE: 08/10/201415 APPLICATIONS PROJECT MANAGER: CARMEL 08/10/201415 RPT#: [id number] DC DATE: STATUS: ADM IN [facility] [address] [place] [address] END OF REPORT
--- NOTE | 2020-08-10 14:39 | NUR ---
DISCHARGE EDUCATION PROVIDED BOTH WRITTEN AND VERBAL. VERBALIZED UNDERSTANDING. DENIES FURTHER QUESTIONS. IV REMOVED FROM LFA WITH TIP INTACT. DENIES FURTHER NEEDS. WAITING RID.E
--- NOTE | 2020-08-10 15:11 | NUR ---
PATIENT DC HOME WITH ALL BELONGINGS.
--- NOTE | 2020-08-11 08:41 | MORECARE ---
CASE MANAGEMENT DISCHARGE SUMMARY PATIENT: IRENE CARTER UNIT: [id number] ADM DATE: 08/06/20 AGE: 55 : [birth year] SEX: F ROOM/BED: D.2204 AUTHOR: KRISH ROMAN PHYSICIAN: REFERRING PHYSICIAN: YAKOV SMITH MD DATE OF SERVICE: 08/11/20 Discharge Plan Patient Name: IRENE CARTER Facility: [facility]:[place] : 1965 Planned Disposition: Home with Home Health Anticipated Discharge Date: Discharge Date: 08/10/2020 Expected LOS: Initial Reviewer: [email or web address] Initial Review Date: 08/06/2020 Generated: 08/11/20 9:41 am Comments DCP- Discharge Planning Updated by [email or web address]: Megan Jacobo on 08/10/20 12:[address] Patient Name: IRENE CARTER Admission Status: ER Accout number: [id number] Admission Date: 08-06-2020 : 1965 Admission Diagnosis:POSTPROC SEROMA OF SKIN, SUBCU FOLLOWING OTHER PROCEDUR Attending: YAKOV SMITH Current LOS: 4 Anticipated DC Date: Planned Disposition: Home with Home Health Primary Insurance: MEDICAID [place] Discharge Planning Comments: CM met with patient to complete initial dc planning assessment. CM educated patient on the CM role and verbal consent given by patient to complete assessment. Patient lives at home with her where she stated that she is independent with her care. At discharge patient plans to return home and feels this is a safe discharge. CM discussed availability of home health, rehab services, and medical equipment. She uses O2 at night. Patient stated that she went to her PCP and was not right and came back to the hospital. She is agreeable to home health, she didn't care about what company. I have sent the referral to [facility]. TAMMY signed. CM will continue to follow and will assist as needed with dc plans/needs. Catalogue Compiler: Megan Jacobo DCPIA - Discharge Planning Initial Assessment Updated by [id number]: Megan Jacobo on 08/10/20 12:59 pm * Is the patient Alert and Oriented? Yes * PCP SERINA * Pharmacy [facility] [address] * Preadmission Environment Home with Family * ADLs Independent * Equipment Oxygen * List name and contact numbers for known caregivers / representatives who currently or will assist patient after discharge: YAKOV CARTER [phone] * Verbal permission to speak to the caregivers and representatives has been obtained from the patient. Yes * Community resources currently utilized None * Additional services required to return to the preadmission environment? Yes * Can the patient safely return to the preadmission environment? Yes * Has this patient been hospitalized within the prior 30 days at any hospital? Yes Last DP export: 08/10/20 1:17 p Patient Name: IRENE CARTER Page 11898 at 0841 All edits/amendments must be made on the electronic document DICTATION DATE: 08/11/20840 OFFICE REP: CARMEL 08/11/20840 RPT#: [id number] DC DATE:08/10/20 STATUS: DIS IN [facility] [address] [place] [address] END OF REPORT
== END 2020-08-10 15:12 | disposition home health service (06) | DRG 605 ==
LOC: D.ER 07:44 → D.MS 17:27
PROVIDERS: Family Medicine; Family Medicine Adult Medicine; Internal Medicine Gastroenterology; Radiology Diagnostic Radiology; ADMIT Family Medicine; ATTEND Family Medicine
DX: S30.1XXA Contusion of abdominal wall, initial encounter (principal); N17.9 Acute kidney failure, unspecified; E87.1 Hypo-osmolality and hyponatremia; D62 Acute posthemorrhagic anemia; F41.8 Other specified anxiety disorders; R50.9 Fever, unspecified; X58.XXXA Exposure to other specified factors, initial encounter; E86.0 Dehydration; E83.42 Hypomagnesemia; E83.39 Other disorders of phosphorus metabolism

== ENCOUNTER 2020-08-13 18:37 | Inpatient (IN) | payer MEDICAID ==
[~2020-08-13] VITALS: Ht 152.4 cm; Wt 107.5 kg
--- NOTE | ~2020-08-13 | EC ---
PATIENT:IRENE CARTER DATE OF SERVICE: 08/13/20 SEX: F MEDICAL RECORD: [id number] DATE OF : [birth year] LOCATION:[place] [address] AGE OF PATIENT: 55 ADMISSION DATE: 08/13/20 REFERRING PHYSICIAN: INTERPRETING PHYSICIAN: DOREEN HYDE MD ECHOCARDIOGRAM REPORT ECHO CHARGES 4 ECHO COMPLETE Date: 08/14/20 CLINICAL DIAGNOSIS: HYPOTENSION ECHOCARDIOGRAPHIC MEASUREMENTS (adult normal given) AC root (d.<3.7cm) 2.6 cm LV Septum d (<1.2 cm> 1.1 cm Valve Excursion 1.7 cm LV Septum (systole) 1.7 cm Left Atria (s.<4.0cm> 2.9 cm LVPW d(<1.2cm) 1.2 cm RV (d.<2.3cm) 2.1 cm LVPW (sytole) 1.3 cm LV diastole(<5.6CM) 4.8 cm MV E-F(>70mm/sec) cm LV systole 3.6 cm LVOT Diameter 1.4 cm MV exc.(>10mm) 1.3 cm Est.ejection fraction (50-75%) % DOPPLER: LVIT cm/sec A 69 cm/sec E 64 cm/sec LA cm/sec RVSP 15 mmHg LVOT 106 cm/sec AOP1/2T m/s Asc. Ao 118 cm/sec RVOT 65 cm/sec RA cm/sec PA 86 cm/sec AV Gradient Peak 5.6 mmHg AV Mean 3.4 mmHg AV Area 1.4 cm MV Gradient Peak 3.2 mmHg MV Mean 1.5 mmHg MV Area cm COMMENTS: Non Licensed Operator: Barak CASTRO Client Server Programmer: 5 Dr. Hyde TAPE# PACS Pericardial Effusion Y DATE OF SERVICE: CLINICAL INDICATION: Hypotension. FINDINGS: Technical difficult and limited study. Left ventricle - normal left ventricular chamber size and contractile function, ejection fraction 55% to 60%. Left atrium appears normal. Right atrium and ventricular chamber is not well visualized. Aortic valve appears normal. No aortic regurgitation. Mitral valve appears normal. No regurgitation. Tricuspid valve not visualized. Trace regurgitation. Pulmonic valve not visualized. Trace regurgitation. No ECHOCARDIOGRAM REPORT [id number] IRENE CARTER pericardial effusion visualized. IMPRESSION: 1. Technically difficult limited study. 2. Normal left ventricular chamber size and contractile function, ejection fraction 55% to 60%. TRANSINT:[id number] Voice Confirmation ID: [id number] DOCUMENT ID: [id number] DOREEN HYDE MD CC: [id number] DICTATION DATE: 08/15/20 1234 SIDE SEAM TENDER: 08/15/20 1448 ADM IN [facility] [address] [place] [address]
[~2020-08-13 18:37] MED LIST changes: +NYSTATIN1 PWD TOPICAL
[2020-08-13 20:04] VITALS: BP 135/70
--- NOTE | 2020-08-13 20:09 | NUR ---
URINE SENT TO LAB
[2020-08-13 20:22] LABS: BILIRUBIN 3+ (NEGATIVE); KETONE NEGATIVE (NEGATIVE); NITRITE NEGATIVE (NEGATIVE); UROBILINOGEN 8 mg/dL (< 2); WHITE CELLS - URINE 0-5 HPF (0-4)
--- NOTE | 2020-08-13 20:24 | NUR ---
PT AMBULATED TO THE RESTROOM WITH ASSISTANCE.
[2020-08-13 20:52] LABS: HCG URINE NEGATIVE (NEGATIVE)
[2020-08-13 21:00] VITALS: BP 114/55
[2020-08-13 21:11] LABS: HEMATOCRIT 34.5 % (36.0-48.0); HEMOGLOBIN 11.4 g/dL (12-16); MCV 81.8 fL (80.0-100.0); MEAN PLATELET VOLUME 9.4 fL (7.4-10.4); PLATELET COUNT 429 10x3/uL (130-400); RBC 4.22 10x6/uL (4.00-5.40); RDW 16.4 % (11.5-14.5); WBC 9.8 10x3/uL (4.8-10.8)
[2020-08-13 21:18] LABS: ANION GAP 10.9 mmol/L (8-16); CALCIUM 7.7 mg/dL (8.5-10.1); CARBON DIOXIDE 24.1 mmol/L (21.0-32.0); CREATININE - SERUM 1.4 mg/dL (0.6-1.3)
--- NOTE | 2020-08-13 21:26 | NUR ---
PT TO CT.
[2020-08-13 21:30] LABS: BILIRUBIN - TOTAL 7.5 mg/dL (0.2-1.3); PROTEIN - SERUM 4.5 g/dL (6.4-8.2)
--- NOTE | 2020-08-13 21:40 | NUR ---
PT BACK FROM CT.
[2020-08-13 21:56] LABS: EOSINOPHILS 9 % (0-7); LYMPHOCYTES 18 % (15-50); MONOCYTES 11 % (2-11); NEUTROPHILS 54 % (40-80); PLATELET ESTIMATE INCREASED; PLATELET MORPHOLOGY GIANT PLTS PRESENT
[2020-08-13 22:00] VITALS: BP 143/76
[2020-08-13 22:17] LABS: INR 1.63 (0.85-1.17); PROTIME 19.1 SECONDS (11.6-15.0)
[2020-08-13 23:00] VITALS: BP 138/60
[2020-08-13 23:17] LABS: % SATURATION 49 % (15-55); IRON 131 ug/dl (35-150); TOTAL IRON BIND CAPACITY 266 ug/dl (260-445); UNSAT IRON BIND CAPACITY 135 ug/dl (150-375)
[2020-08-13 23:23] LABS: APTT 36.6 SECONDS (22.8-39.4)
[2020-08-13 23:55] LABS: D-DIMER-QUANTITATIVE 9.36 ug/mLFEU (0.20-0.54)
[2020-08-14] VITALS (31 sets, daily range): BP systolic 73–154; BP diastolic 32–84
--- NOTE | 2020-08-14 00:09 | NUR ---
PT ASSISTED TO THE RESTROOM AT THIS TIME.
--- NOTE | 2020-08-14 02:10 | NUR ---
LISETTE MACDONALD APRN CONTACTED DUE TO PT BLOOD PRESSURE. VERBAL ORDERS FOR 500ML NS BOLUS GIVEN.
--- NOTE | 2020-08-14 02:45 | NUR ---
LISETTE MACDONALD APRN CONTACTED DUE TO PT BLOOD PRESSURE NOT RESPONDING TO FLUID BOLUS. FURTHER ORDERS ENTERED INTO PT CHART.
--- NOTE | 2020-08-14 03:28 | NUR ---
AT BEDSIDE TO EVALUATE PT.
[2020-08-14 05:04] LABS: BASOPHILS 0.5 % (0-2); EOSINOPHILS 3.2 % (0-7); HEMATOCRIT 36.8 % (36.0-48.0); HEMOGLOBIN 12.3 g/dL (12-16); LYMPHOCYTES 12.7 % (15-50); MCH 27.6 pg (26.0-34.0); MCHC 33.4 g/dL (31.0-37.0); MCV 82.5 fL (80.0-100.0); MONOCYTES 8.4 % (2-11); NEUTROPHILS 70.2 % (40-80); PLATELET COUNT 465 10x3/uL (130-400); RBC 4.46 10x6/uL (4.00-5.40); RDW 16.6 % (11.5-14.5); WBC 11.4 10x3/uL (4.8-10.8)
[2020-08-14 05:21] LABS: ALBUMIN 2.3 g/dL (3.4-5.0); ALKALINE PHOSPHATASE 383 U/L (30-120); CALC OSMOLALITY 261 mosm/kg (275-300); CALCIUM 7.8 mg/dL (8.5-10.1); CARBON DIOXIDE 22.7 mmol/L (21.0-32.0); CHLORIDE - SERUM 99 mmol/L (98-107); CKMB 1.4 U/L (0.0-3.6); CREATINE KINASE 40 UL (21-215); CREATININE - SERUM 1.4 mg/dL (0.6-1.3); GLUCOSE 134 mg/dL (74-106); POTASSIUM - SERUM 4.1 mmol/L (3.5-5.1); PROTEIN - SERUM 5.1 g/dL (6.4-8.2); SODIUM 129 mmol/L (136-145); TROPONIN-I < 0.017 ng/mL (0.000-0.060); UREA NITROGEN 15 mg/dL (7-18); eGFR NON AFRICAN AMERICAN 42 mL/min (90-120)
[2020-08-14 05:22] LABS: ALT (SGPT) 1719 U/L (10-68)
--- NOTE | 2020-08-14 07:15 | NUR ---
REPORT GIVEN TO MARY TORRES.
--- NOTE | 2020-08-14 09:35 | NUR ---
NOTIFIED AALIYAH Menezes DESOTO AND VOISE OF CONSULTS
--- NOTE | 2020-08-14 09:54 | NUR ---
PT ASSISTED TO RESTROOM. PT AMBULATED INDEPENDENTLY
--- NOTE | 2020-08-14 10:18 | NUR ---
VANC STOPPED AT THIS TIME.
[2020-08-14 11:06] LABS: CKMB 1.5 U/L (0.0-3.6); CREATINE KINASE 57 UL (21-215); TROPONIN-I 0.022 ng/mL (0.000-0.060)
--- NOTE | 2020-08-14 12:03 | MORECARE ---
CASE MANAGEMENT DISCHARGE SUMMARY PATIENT: IRENE CARTER UNIT: [id number] ADM DATE: 08/13/20 AGE: 55 : 69 SEX: F ROOM/BED: D.E12 AUTHOR: JESSIEDOC PHYSICIAN: REFERRING PHYSICIAN: TEQUILA MOTTA MD DATE OF SERVICE: 08/14/20 Discharge Plan Patient Name: IRENE CARTER Facility: [facility]:[place] : 1965 Planned Disposition: Anticipated Discharge Date: Discharge Date: Expected LOS: Initial Reviewer: [email or web address] Initial Review Date: 08/14/2020 Generated: 08/14/20 1:03 pm Comments DCP- Discharge Planning Updated by [email or web address]: Caitlyn Levy on 08/14/20 10:[address] CM called [facility] call center and spoke with Aydee and gave her the information along with Dr. Motta's phone number and number to ED. She states she will have the MD call Dr. Motta and have her on the transfer list. CM will continue to follow and assist with discharge planning/needs. DCP- Discharge Planning Updated by [id number]: Caitlyn Levy on 08/14/20 10:[address] Patient Name: IRENE CARTER Admission Status: ER Accout number: [id number] Admission Date: 08-13-2020 : 1965 Admission Diagnosis:HEPATIC FAILURE, UNSPECIFIED WITHOUT COMA Attending: MADDY Current LOS: 1 Anticipated DC Date: Planned Disposition: [facility] Primary Insurance: MEDICAID [place] Discharge Planning Comments: CM received a consult for transfer to higher level of care to content checker and for sepsis. I spoke with the patient and she is agreeable to transfer to [facility] in or [facility]. I spoke with Anne at [facility] and she states they do not have a content checker at [facility], only at [facility]. I called the [facility] physician transfer number [phone] and received a voice mail. I gave them information and to call me back at my number. I faxed clinical to [phone]. CM will continue to follow and assist with discharge planning/needs. Environmental Health And Safety Intern: Caitlyn Levy External Providers External Provider: [email or web address] Next Contact Date: Service Request Date: Service Type: Resolution: Reviewer: Comments: Patient Name: IRENE CARTER Page 57012 at 1203 All edits/amendments must be made on the electronic document DICTATION DATE: 08/14/20 1203 CORE DRILLING SUPERVISOR: CARMEL 08/14/20 1203 RPT#: [id number] DC DATE: STATUS: ADM IN [facility] [address] [place] [address] END OF REPORT
--- NOTE | 2020-08-14 13:20 | NUR ---
DR BEARDEN AT BEDSIDE AT THIS TIME.
--- NOTE | 2020-08-14 13:24 | NUR ---
0.45 NS STOPPED AT THIS TIME PER DR BEARDEN
--- NOTE | 2020-08-14 15:57 | NUR ---
SPOKE WITH TEZ FROM [facility]
--- NOTE | 2020-08-14 17:39 | NUR ---
PT PROVIDED WITH MEAL TRAY. REPOSITIONED IN BED FOR COMFORT.
[2020-08-14 17:42] LABS: PROTEIN - BODY FLUID 3.2 G/DL
--- NOTE | 2020-08-14 18:21 | NUR ---
LEVOPHED LOWERED TO 2 MCG/MIN
[2020-08-14 18:28] LABS: CKMB 1.6 U/L (0.0-3.6); CREATINE KINASE 71 UL (21-215); TROPONIN-I 0.022 ng/mL (0.000-0.060)
[2020-08-14 18:31] LABS: MACROPHAGES BF 6 %; NEUT - BF 8 %
--- NOTE | 2020-08-14 19:45 | NUR ---
ICE PACK GIVEN TO PT PER REQUEST FOR HEADACHE. REPORTS EPITAXSIS TODAY. PT EXPRESSING ANXIETY ABOUT CONDITION. THIS WAS RELAYED TO AURA KNOX. ADVISED TO GIVE PRN VILLA D/T ANXIETY. VSS. PT ON MONITOR. WILL CONTINUE TO MONITOR.
--- NOTE | 2020-08-14 21:17 | NUR ---
ASSISTED PT WITH AMBULATING TO BEDSIDE COMMODE.
[2020-08-15] VITALS (28 sets, daily range): BP systolic 89–128; BP diastolic 50–95; BMI 45.9
--- NOTE | 2020-08-15 01:20 | NUR ---
PT USED BEDSIDE COMMODE AT THIS TIME, YELLOW URINE VOIDED. PT PROVIDED OWN RIVER CARE. ASSISTED PT BACK TO BED, LIGHTS DIMMED PER REQUEST. REPLENISHED ICE WATER. CALL LIGHT IN REACH, PT ON MONITOR. WILL CONTINUE TO MONITOR.
--- NOTE | 2020-08-15 02:50 | NUR ---
PT RESTING WITH EYES CLOSED, NO SIGNS DISTRESS NOTED. WILL CONTINUE TO MONITOR.
--- NOTE | 2020-08-15 04:10 | NUR ---
PT C/O HEADACHE, 10/10 PAIN SCALE. PRN PAIN MEDICATION GIVEN AT THIS TIME. PT NOW RESTING IN POSITION OF COMFORT, CALL LIGHT IN REACH. WILL CONTINUE TO MONITOR.
--- NOTE | 2020-08-15 04:33 | NUR ---
SPOKE WITH AURA KNOX ABOUT PT REFUSING TO DISCUSS CVL WITH STAFF. ALSO DISCUSSED PT HEADACHES WITH AURA.
--- NOTE | 2020-08-15 04:57 | NUR ---
ASSISTED PT WITH TOILETING, VOIDED URINE.
--- NOTE | 2020-08-15 05:58 | NUR ---
PT RESTING WITH NO SIGNS DISTRESS NOTED. EVEN RISE AND FALL OF CHEST NOTED. WILL CONTINUE TO MONITOR.
[2020-08-15 07:29] LABS: BASOPHILS 2.2 % (0-2); EOSINOPHILS 13.6 % (0-7); HEMATOCRIT 31.8 % (36.0-48.0); HEMOGLOBIN 10.1 g/dL (12-16); IMMATURE GRANULOCYTES 2.8 % (0-5); LYMPHOCYTES 25.9 % (15-50); MCH 26.5 pg (26.0-34.0); MCHC 31.8 g/dL (31.0-37.0); MCV 83.5 fL (80.0-100.0); MEAN PLATELET VOLUME 9.7 fL (7.4-10.4); MONOCYTES 17.7 % (2-11); NEUTROPHILS 37.8 % (40-80); PLATELET COUNT 224 10x3/uL (130-400); RBC 3.81 10x6/uL (4.00-5.40); RDW 17.6 % (11.5-14.5); WBC 5.4 10x3/uL (4.8-10.8)
--- NOTE | 2020-08-15 07:30 | NUR ---
PT LAYING IN BED RESTING WITH EYESE CLOSE RESPIRATIONS ARE EVEN AND UNLABORED. NO DISTRESS NOTED. VSS. WILL CONTINUE TO MONITOR.
[2020-08-15 08:12] LABS: HEPATITIS C ANTIBODY <0.1 (0.0-0.9); IMMUNOGLOBULIN A 134 mg/dL (87-352); IMMUNOGLOBULIN G 689 mg/dL (586-1602); IMMUNOGLOBULIN M 200 mg/dL (26-217)
[2020-08-15 08:23] LABS: ALKALINE PHOSPHATASE 271 U/L (30-120); CHLORIDE - SERUM 89 mmol/L (98-107); GLUCOSE 99 mg/dL (74-106); MAGNESIUM - SERUM 2.2 mg/dL (1.8-2.4); POTASSIUM - SERUM 4.2 mmol/L (3.5-5.1); SODIUM 148 mmol/L (136-145)
[2020-08-15 08:32] LABS: CALC OSMOLALITY 292 mosm/kg (275-300); CREATININE - SERUM 0.2 mg/dL (0.6-1.3); UREA NITROGEN 10 mg/dL (7-18); eGFR NON AFRICAN AMERICAN > 90 mL/min (90-120)
[2020-08-15 08:33] LABS: ALBUMIN 1.5 g/dL (3.4-5.0); ALT (SGPT) 790 U/L (10-68); CALCIUM 7.5 mg/dL (8.5-10.1); CARBON DIOXIDE 22.3 mmol/L (21.0-32.0); PROTEIN - SERUM 3.4 g/dL (6.4-8.2)
--- NOTE | 2020-08-15 10:10 | NUR ---
PT ASSISTED TO BEDSIDE COMMODE AT THIS TIME.
--- NOTE | 2020-08-15 10:28 | NUR ---
PT PROVIDED WITH BREAKFAST TRAY
--- NOTE | 2020-08-15 12:00 | NUR ---
PT REPORT CALLED TO FLORES.
--- NOTE | 2020-08-15 12:09 | NUR ---
VANCOMYCIN STOPPED AT THIS TIME.
--- NOTE | 2020-08-15 13:33 | NUR ---
1227: REC'D TO ROOM CV 7. TRANSFERRED SELF TO ICU BED. CONNECTED TO MONITOR AND VS OBTAINED. IV L VENTRAL FOREARM ERYTHEMATOUS. IV LEVOPHED DC'D. UNABLE TO START NEW SITE AFTER [address] PAIZ TO PLACE CVL. ADMISSION HISTORY OBTAINED AND ASSESSMENT COMPLETED.
[2020-08-15 14:44] LABS: ALBUMIN 1.8 g/dL (3.4-5.0); ANION GAP 8.2 mmol/L (8-16); BILIRUBIN - TOTAL 9.23 mg/dL (0.2-1.3); CALCIUM 7.2 mg/dL (8.5-10.1); CARBON DIOXIDE 22.5 mmol/L (21.0-32.0); POTASSIUM - SERUM 3.7 mmol/L (3.5-5.1); PROTEIN - SERUM 3.9 g/dL (6.4-8.2)
[2020-08-15 14:56] LABS: CREATININE - SERUM 1.2 mg/dL (0.6-1.3)
--- NOTE | 2020-08-15 15:25 | NUR ---
1348: NEPHROLOGY HERE. NEW ORDERS REC'D. IV FLUID DC'D. 1415: DR. MOTTA HERE. IV FLUIDS REORDERED. DISCUSSED PLANS WITH PATIENT AND . 1445: DR. PAIZ HERE. R IJ TRIPLE LUMEN PLACED.
--- NOTE | 2020-08-15 17:26 | OP ---
PATIENT NAME: IRENE CARTER MEDICAL RECORD: [id number] :[birth year] LOCATION:D.CVI D.CV07 ADMISSION DATE:08/13/20 SURGEON: MELVIN PAIZ MD DATE OF OPERATION: 08/15/2020 PREOPERATIVE DIAGNOSES: 1. Jaundice. 2. Fatigue. 3. Headache. 4. Hypotension, on vasopressor therapy. POSTOPERATIVE DIAGNOSES: 1. Jaundice. 2. Fatigue. 3. Headache. 4. Hypotension, on vasopressor therapy. PROCEDURE: Insertion of right internal jugular triple lumen central venous catheter. SURGEON: Melvin Paiz MD GLUCOSE AND SYRUP WEIGHER: None. BLOOD LOSS: Minimal. ANESTHESIA: Local. The risks, possible complications and alternatives to the procedure were explained to the patient. Consent form was signed. The entire procedure was performed in the patient's ICU bed in the presence of a female nurse. OPERATIVE COURSE: The patient was positioned in the Trendelenburg position. The right neck was sterilely prepped and draped. A local anesthetic was used to infiltrate the skin and subcutaneous tissues at the base of the right neck. The right internal jugular vein was percutaneously accessed in an antegrade fashion. Guidewire was passed easily. A small skin cristóbal was accomplished. A vessel dilator was used to dilate a subcutaneous tract. A 16-cm triple lumen central venous catheter was inserted to the hub. It was sutured in place times 2. All lumens flushed easily and aspirated dark, nonpulsatile blood. A stat portable chest x-ray is pending. TRANSINT:[id number] Voice Confirmation ID: [id number] DOCUMENT ID: [id number] MELVIN PAIZ MD at 1726 CC: [id number] DICTATION DATE: 08/15/20 1542 HOUSE PLAYER: 08/15/20 1715 ADM IN [place] [id number] [place] [address]
[2020-08-16] VITALS (24 sets, daily range): BP systolic 92–155; BP diastolic 46–85
[2020-08-16 07:06] LABS: ALBUMIN 1.6 g/dL (3.4-5.0); ANION GAP 10.5 mmol/L (8-16); BILIRUBIN - TOTAL 9.27 mg/dL (0.2-1.3); CALCIUM 7.5 mg/dL (8.5-10.1); CARBON DIOXIDE 21.2 mmol/L (21.0-32.0); CREATININE - SERUM 1.1 mg/dL (0.6-1.3); MAGNESIUM - SERUM 1.8 mg/dL (1.8-2.4); POTASSIUM - SERUM 3.7 mmol/L (3.5-5.1); PROTEIN - SERUM 3.5 g/dL (6.4-8.2); VANCOMYCIN - TROUGH 8.4 ug/mL (10.0-20.0)
[2020-08-16 07:29] LABS: INR 1.69 (0.85-1.17); PROTIME 19.7 SECONDS (11.6-15.0)
[2020-08-16 08:03] LABS: HEMATOCRIT 34.3 % (36.0-48.0); HEMOGLOBIN 11.6 g/dL (12-16); MCH 27.4 pg (26.0-34.0); MCHC 33.8 g/dL (31.0-37.0); MEAN PLATELET VOLUME 9.2 fL (7.4-10.4); RBC 4.24 10x6/uL (4.00-5.40); RDW 17.7 % (11.5-14.5)
[2020-08-16 08:04] LABS: MCV 80.9 fL (80.0-100.0); PLATELET COUNT 329 10x3/uL (130-400); WBC 7.8 10x3/uL (4.8-10.8)
[2020-08-16 08:37] LABS: BASOPHILS 1 % (0-2); EOSINOPHILS 26 % (0-7); LYMPHOCYTES 22 % (15-50); MONOCYTES 1 % (2-11); NEUTROPHILS 48 % (40-80); PLATELET ESTIMATE NORMAL
--- NOTE | 2020-08-16 21:43 | NUR ---
INITAIL ROUNDS COMPLETED AT 1920 HRS. NO DISTRESS NOTED. SPOUSE AT BEDSIDE. ASSESSMENT COMPLETED AT 2000 HRS. VSS. SR PER CM HR 90. ALERT AND ORIENTED TO PERSON, PLACE AND TIME. GUAJARDO. GENERALIZED EDEMA NOTED. PT IS JAUNDICED. LUNGS DIMINISHED IN BASES BILAT. RTLIJ NOTED WITH NS AT 100CC/HR TO PROXIMAL PORT. IV PATENT. PALPABLE PERIPHERAL PULSES. O2 2LNC PLACED PER PT'S INSISTANCE. PT STATES SHE HAS HOME O2 AT HS. PT UP TO BR AT 2049 HRS. VOIDED MODERATE AMOUNT OF URINE AND HAD MEDIUM FORMED BM. UNABLE TO COLLECT SPECIMEN. ASSISTED PT BACK TO BED. PM MEDS GIVEN. PT CURRENTLY RESTING WITH EYES CLOSED. RESP EVEN AND REGULAR. SR UP X2, CALL LIGHT WITHIN REACH.
[2020-08-17] VITALS (16 sets, daily range): BP systolic 119–186; BP diastolic 55–104; Ht 152.4 cm; Wt 107.5 kg
--- NOTE | 2020-08-17 00:14 | NUR ---
PT RESTING WITH EYES CLOSED. RESP EVEN AND REGULAR. SR UP X2, CALL LIGHT WITHIN REACH. VSS.
--- NOTE | 2020-08-17 02:02 | NUR ---
PT RESTING WITH EYES CLOSED. RESP EVEN AND REGULAR. SR UP X2,CALL LIGHT WITHIN REACH.
--- NOTE | 2020-08-17 04:55 | NUR ---
PT RESTING WITH EYES CLOSED. RESP EVEN AND REGULAR. SR UP X2, CALL LIGHT WITHIN REACH.
[2020-08-17 05:54] LABS: HEMATOCRIT 33.3 % (36.0-48.0); HEMOGLOBIN 10.9 g/dL (12-16); MCH 26.7 pg (26.0-34.0); MCHC 32.7 g/dL (31.0-37.0); MCV 81.6 fL (80.0-100.0); MEAN PLATELET VOLUME 9.1 fL (7.4-10.4); PLATELET COUNT 290 10x3/uL (130-400); RBC 4.08 10x6/uL (4.00-5.40)
--- NOTE | 2020-08-17 06:06 | NUR ---
VSS THROUGHOUT NIGHT. SR PER CM. PT DENIED ANY DISCOMFORT. UP TO BR SEVERL TIMES WITH MINIMAL ASSIST. NEEDS MET; WILL CONTINUE TO MONITOR.
[2020-08-17 06:36] LABS: ANION GAP 9.7 mmol/L (8-16); BILIRUBIN - TOTAL 9.76 mg/dL (0.2-1.3); CALCIUM 7.6 mg/dL (8.5-10.1); CARBON DIOXIDE 24.7 mmol/L (21.0-32.0); CREATININE - SERUM 1.1 mg/dL (0.6-1.3); MAGNESIUM - SERUM 1.7 mg/dL (1.8-2.4); POTASSIUM - SERUM 3.4 mmol/L (3.5-5.1); PROTEIN - SERUM 3.8 g/dL (6.4-8.2)
[2020-08-17 06:41] LABS: ALBUMIN 2.2 g/dL (3.4-5.0)
[2020-08-17 10:52] LABS: EOSINOPHILS 9 % (0-7); LYMPHOCYTES 21 % (15-50); MONOCYTES 18 % (2-11); NEUTROPHILS 47 % (40-80); PLATELET ESTIMATE NORMAL
[2020-08-17 10:53] LABS: ANISOCYTOSIS OCC
[2020-08-17 11:31] LABS: BILIRUBIN 1+ (NEGATIVE); KETONE NEGATIVE (NEGATIVE); NITRITE NEGATIVE (NEGATIVE); UROBILINOGEN 4 mg/dL (< 2)
[2020-08-17 11:33] LABS: BACTERIA FEW HPF (NONE SEEN); EPITHELIAL CELLS RARE /hpf (0-5); WHITE CELLS - URINE RARE HPF (0-4)
[2020-08-17 11:34] LABS: GRANULAR CAST RARE LPF (NONE SEEN)
--- NOTE | 2020-08-17 15:54 | NUR ---
REPORT GIVEN TO BUTCH ON MED SURG.
--- NOTE | 2020-08-17 19:39 | NUR ---
PATIENT RESTING IN BED WITH NO S/S OF DISTRESS. PATIENT DENIES NEEDS AT THIS TIME. BED IN LOWEST POSITION AND CALL LIGHT WITHIN REACH. ENCOURAGED THE PATIETN TO CALL IF SHE HAS NEEDS. WILL CONTINUE TO MONITOR.
--- NOTE | 2020-08-17 21:10 | NUR ---
ADMINISTERED MEDS PER ORDERS. ASSISTED PATIENT TO AND FROM RESTROOM. PATIENT DENIES OTHER NEEDS. WILL CONTINUE TO MONITOR.
[2020-08-18] VITALS: BP 135/80
[2020-08-18 04:00] VITALS: BP 165/87
[2020-08-18 06:56] LABS: EOSINOPHILS 13.9 % (0-7); HEMATOCRIT 30.4 % (36.0-48.0); IMMATURE GRANULOCYTES 0.8 % (0-5); LYMPHOCYTES 32.1 % (15-50); MCH 26.8 pg (26.0-34.0); MCHC 32.9 g/dL (31.0-37.0); MCV 81.5 fL (80.0-100.0); MEAN PLATELET VOLUME 9.1 fL (7.4-10.4); MONOCYTES 19.1 % (2-11); NEUTROPHILS 33.1 % (40-80); PLATELET COUNT 271 10x3/uL (130-400); RBC 3.73 10x6/uL (4.00-5.40); RDW 18.3 % (11.5-14.5); WBC 7.2 10x3/uL (4.8-10.8)
[2020-08-18 06:58] LABS: PROTIME 22.7 SECONDS (11.6-15.0)
[2020-08-18 07:00] LABS: INR 2.03 (0.85-1.17)
[2020-08-18 07:12] LABS: ALBUMIN 2.5 g/dL (3.4-5.0); ANION GAP 10.6 mmol/L (8-16); BILIRUBIN - TOTAL 9.82 mg/dL (0.2-1.3); CALCIUM 7.7 mg/dL (8.5-10.1); CARBON DIOXIDE 25.7 mmol/L (21.0-32.0); CREATININE - SERUM 1.1 mg/dL (0.6-1.3); MAGNESIUM - SERUM 1.5 mg/dL (1.8-2.4); POTASSIUM - SERUM 3.3 mmol/L (3.5-5.1); PROTEIN - SERUM 3.8 g/dL (6.4-8.2)
[2020-08-18 08:00] VITALS: BP 102/50; BP 131/75
[2020-08-18 10:55] VITALS: BP 131/75
[2020-08-18 11:11] LABS: CREATININE - URINE 72.6 mg/dL (Not Estab.); MICROALBUMIN - URINE 3.8 ug/mL (Not Estab.)
[2020-08-18 14:10] LABS: MITOCHONDRIAL ANTIBODY <20.0 Units (0.0-20.0); SMOOTH MUSCLE ABS (ACTIN) 7 Units (0-19)
[2020-08-18 17:48] VITALS: BP 151/56
[2020-08-18 20:00] VITALS: BP 133/79
--- NOTE | 2020-08-19 02:49 | NUR ---
I have reviewed this patient and I concur with the Shift Assessment completed by the Licensed Practical Nurse today this shift.
[2020-08-19 04:00] VITALS: BP 146/81
[2020-08-19 06:23] LABS: HEMOGLOBIN 10.1 g/dL (12-16); IMMATURE GRANULOCYTES 0.6 % (0-5); LYMPHOCYTES 30.8 % (15-50); MCH 26.6 pg (26.0-34.0); MCHC 32.6 g/dL (31.0-37.0); MCV 81.6 fL (80.0-100.0); MONOCYTES 18.7 % (2-11); NEUTROPHILS 33.9 % (40-80); PLATELET COUNT 275 10x3/uL (130-400); RDW 18.3 % (11.5-14.5)
[2020-08-19 06:41] LABS: INR 1.63 (0.85-1.17); PROTIME 19.1 SECONDS (11.6-15.0)
[2020-08-19 07:01] LABS: ALBUMIN 2.9 g/dL (3.4-5.0); ANION GAP 9.2 mmol/L (8-16); BILIRUBIN - TOTAL 10.36 mg/dL (0.2-1.3); CALCIUM 7.8 mg/dL (8.5-10.1); CARBON DIOXIDE 31.6 mmol/L (21.0-32.0); CREATININE - SERUM 0.9 mg/dL (0.6-1.3); PROTEIN - SERUM 4.5 g/dL (6.4-8.2)
[2020-08-19 07:04] LABS: POTASSIUM - SERUM 2.8 mmol/L (3.5-5.1)
--- NOTE | 2020-08-19 09:00 | NUR ---
PT RESTING IN BED WITH EYES CLOSED. AWAKENS STAFF CALLS NAME. INSTRUCTED PT ON NPO STATUS FOR UPCOMING PROCEDURE. PT VOICES UNDERSTANDING AND EAGERNESS FOR PROCEDURE, "I THINK IT WILL MAKE ME FEEL BETTER." RIGHT IJ INTACT AND SALINE LOC'D AT THIS TIME. SITE WITHOUT REDNESS OR EDEMA. AM MEDS TO BE ADMINISTERED. DRESSING TO RIGHT ABDOMEN INTACT. PT DENIES FURTHER NEEDS AT THIS TIME. CL WITHIN REACH. ENCOURAGED TO CALL WITH NEEDS. CONTINUE POC
[2020-08-19 09:47] VITALS: BP 118/22
[2020-08-19 11:57] VITALS: BP 122/63
--- NOTE | 2020-08-19 15:26 | MORECARE ---
CASE MANAGEMENT DISCHARGE SUMMARY PATIENT: IRENE CARTER UNIT: [id number] ADM DATE: 08/13/20 AGE: 55 : [birth year] SEX: F ROOM/BED: D.2235 AUTHOR: JESSIE,DOC PHYSICIAN: REFERRING PHYSICIAN: TEQUILA MOTTA MD DATE OF SERVICE: 08/19/20 Discharge Plan Patient Name: IRENE CARTER Facility: [facility]:[place] : 1965 Planned Disposition: Anticipated Discharge Date: Discharge Date: Expected LOS: Initial Reviewer: [email or web address] Initial Review Date: 08/14/2020 Generated: 08/19/20 4:25 pm Comments DCP- Discharge Planning Updated by [id number]: Roseline Yeboah on 08/19/20 2:[address] Patient Name: IRENE CARTER Admission Status: ER Accout number: [id number] Admission Date: 08-13-2020 : 1965 Admission Diagnosis:HEPATIC FAILURE, UNSPECIFIED WITHOUT COMA Attending: MADDY Current LOS: 6 Anticipated DC Date: Planned Disposition: Primary Insurance: MEDICAID [place] Discharge Planning Comments: I SPOKE WITH DR. GABRIEL BARBOSA'S OFFICE AND HE WILL NOT HAVE ANYTHING AVAILABLE UNTIL AFTER Nov. WE WILL NEED TO FAX A REFERRAL AND CLINICALS TO HIS OFFICE AT [phone] AND PHONE NUMBER [phone] IF PATIENT WOULD LIKE AN APPOINTMENT AT THE FIRST OF THE YEAR. CM TO FOLLOW NEEDED. Reed Or Wind Instrument Repairer: Roseline Yeboah DCP- Discharge Planning Updated by [email or web address]: Caitlyn Levy on 08/14/20 10:[address] CM called [facility] call center and spoke with Aydee and gave her the information along with Dr. Motta's phone number and number to ED. She states she will have the MD call Dr. Motta and have her on the transfer list. CM will continue to follow and assist with discharge planning/needs. DCP- Discharge Planning Updated by [id number]: Caitlyn Levy on 08/14/20 10:[address] Patient Name: IRENE CARTER Admission Status: ER Accout number: [id number] Admission Date: 08-13-2020 : 1965 Admission Diagnosis:HEPATIC FAILURE, UNSPECIFIED WITHOUT COMA Attending: MADDY Current LOS: 1 Anticipated DC Date: Planned Disposition: [facility] Primary Insurance: MEDICAID [place] Discharge Planning Comments: CM received a consult for transfer to higher level of care to visual presentation manager and for sepsis. I spoke with the patient and she is agreeable to transfer to [facility] in or [facility]. I spoke with Anne at [facility] and she states they do not have a visual presentation manager at [facility], only at [facility]. I called the [facility] physician transfer number [phone] and received a voice mail. I gave them information and to call me back at my number. I faxed clinical to [phone]. CM will continue to follow and assist with discharge planning/needs. Reed Or Wind Instrument Repairer: Caitlyn Levy Last DP export: 08/14/20 11:03 a Patient Name: IRENE CARTER Page 99564 at 1526 All edits/amendments must be made on the electronic document DICTATION DATE: 08/19/20 1525 KILN FIREMAN: CARMEL 08/19/20 1525 RPT#: [id number] DC DATE: STATUS: ADM IN [facility] [address] [place] [address] END OF REPORT
--- NOTE | 2020-08-19 16:38 | MORECARE ---
CASE MANAGEMENT DISCHARGE SUMMARY PATIENT: IRENE CARTER UNIT: [id number] ADM DATE: 08/13/20 AGE: 55 : [birth year] SEX: F ROOM/BED: D.2235 AUTHOR: JESSIE,DOC PHYSICIAN: REFERRING PHYSICIAN: TEQUILA MOTTA MD DATE OF SERVICE: 08/19/20 Discharge Plan Patient Name: IRENE CARTER Facility: [facility]:[place] : 1965 Planned Disposition: Anticipated Discharge Date: Discharge Date: Expected LOS: Initial Reviewer: [email or web address] Initial Review Date: 08/14/2020 Generated: 08/19/20 5:38 pm Comments DCP- Discharge Planning Updated by [id number]: Roseline Yeboah on 08/19/20 2:[address] Patient Name: IRENE CARTER Admission Status: ER Accout number: [id number] Admission Date: 08-13-2020 : 1965 Admission Diagnosis:HEPATIC FAILURE, UNSPECIFIED WITHOUT COMA Attending: MADDY Current LOS: 6 Anticipated DC Date: Planned Disposition: Primary Insurance: MEDICAID [place] Discharge Planning Comments: I SPOKE WITH DR. GABRIEL BARBOSA'S OFFICE AND HE WILL NOT HAVE ANYTHING AVAILABLE UNTIL AFTER Nov. WE WILL NEED TO FAX A REFERRAL AND CLINICALS TO HIS OFFICE AT [phone] AND PHONE NUMBER [phone] IF PATIENT WOULD LIKE AN APPOINTMENT AT THE FIRST OF THE YEAR. CM TO FOLLOW NEEDED. Methods Analyst: Roseline Yeboah DCP- Discharge Planning Updated by [id number]: Caitlyn Levy on 08/14/20 10:[address] CM called [facility] call center and spoke with Aydee and gave her the information along with Dr. Motta's phone number and number to ED. She states she will have the MD call Dr. Motta and have her on the transfer list. CM will continue to follow and assist with discharge planning/needs. DCP- Discharge Planning Updated by [id number]: Caitlyn Levy on 08/14/20 10:[address] Patient Name: IRENE CARTER Admission Status: ER Accout number: [id number] Admission Date: 08-13-2020 : 1965 Admission Diagnosis:HEPATIC FAILURE, UNSPECIFIED WITHOUT COMA Attending: MADDY Current LOS: 1 Anticipated DC Date: Planned Disposition: [facility] Primary Insurance: MEDICAID [place] Discharge Planning Comments: CM received a consult for transfer to higher level of care to basting puller and for sepsis. I spoke with the patient and she is agreeable to transfer to [facility] in or [facility]. I spoke with Anne at [facility] and she states they do not have a basting puller at [facility], only at [facility]. I called the [facility] physician transfer number [phone] and received a voice mail. I gave them information and to call me back at my number. I faxed clinical to [phone]. CM will continue to follow and assist with discharge planning/needs. Methods Analyst: Caitlyn Levy Last DP export: 08/19/20 2:25 Patient Name: IRENE CARTER Page 76464 at 1638 All edits/amendments must be made on the electronic document DICTATION DATE: 08/19/20 1638 DINKEY MOTOR OPERATOR: CARMEL 08/19/20 163 RPT#: [id number] DC DATE: STATUS: ADM IN [facility] [address] [place] [address] END OF REPORT
--- NOTE | 2020-08-19 18:49 | MORECARE ---
CASE MANAGEMENT DISCHARGE SUMMARY PATIENT: IRENE CARTER UNIT: [id number] ADM DATE: 08/13/20 AGE: 55 : 69 SEX: F ROOM/BED: D.2235 AUTHOR: JESSIE,DOC PHYSICIAN: REFERRING PHYSICIAN: TEQUILA MOTTA MD DATE OF SERVICE: 08/19/20 Discharge Plan Patient Name: IRENE CARTER Facility: [facility]:[place] : 1965 Planned Disposition: Anticipated Discharge Date: Discharge Date: Expected LOS: Initial Reviewer: [email or web address] Initial Review Date: 08/14/2020 Generated: 08/19/20 7:49 pm Comments DCP- Discharge Planning Updated by [id number]: Sheyla Wiggins on 08/19/20 5:[address] LATE ENTRY 08/17/[address] ELLIS AND AT THIS TIME HE DOESN'T THINK PATIENT NEEDS TO GO TO [facility]. PATIENT IS MUCH IMPROVED AND WILL TRANSFER TO FLOOR. DCP- Discharge Planning Updated by [id number]: Roseline Yeboah on 08/19/20 2:[address] Patient Name: IRENE CARTER Admission Status: ER Accout number: [id number] Admission Date: 08-13-2020 : 1965 Admission Diagnosis:HEPATIC FAILURE, UNSPECIFIED WITHOUT COMA Attending: MADDY Current LOS: 6 Anticipated DC Date: Planned Disposition: Primary Insurance: MEDICAID [place] Discharge Planning Comments: I SPOKE WITH DR. GABRIEL BARBOSA'S OFFICE AND HE WILL NOT HAVE ANYTHING AVAILABLE UNTIL AFTER Nov. WE WILL NEED TO FAX A REFERRAL AND CLINICALS TO HIS OFFICE AT [phone] AND PHONE NUMBER [phone] IF PATIENT WOULD LIKE AN APPOINTMENT AT THE FIRST OF THE YEAR. CM TO FOLLOW NEEDED. Loan Assistant: Roseline Yeboah DCP- Discharge Planning Updated by [email or web address]: Caitlyn Levy on 08/14/20 10:[address] CM called [facility] call center and spoke with Aydee and gave her the information along with Dr. oMtta's phone number and number to ED. She states she will have the MD call Dr. Motta and have her on the transfer list. CM will continue to follow and assist with discharge planning/needs. DCP- Discharge Planning Updated by [id number]: Caitlyn Levy on 08/14/20 10:[address] Patient Name: IRENE CARTER Admission Status: ER Accout number: [id number] Admission Date: 08-13-2020 : 1965 Admission Diagnosis:HEPATIC FAILURE, UNSPECIFIED WITHOUT COMA Attending: MADDY Current LOS: 1 Anticipated DC Date: Planned Disposition: [facility] Primary Insurance: MEDICAID [place] Discharge Planning Comments: CM received a consult for transfer to higher level of care to lamp shade joiner and for sepsis. I spoke with the patient and she is agreeable to transfer to [facility] in or [facility]. I spoke with Anne at [facility] and she states they do not have a lamp shade joiner at [facility], only at [facility]. I called the [facility] physician transfer number [phone] and received a voice mail. I gave them information and to call me back at my number. I faxed clinical to [phone]. CM will continue to follow and assist with discharge planning/needs. Loan Assistant: Caitlyn Cam Last DP export: 08/19/20 3:38 Patient Name: IRENE CARTER Page [id number] at 1849 All edits/amendments must be made on the electronic document DICTATION DATE: 08/19/201848 REPOSSESSION AGENT: CARMEL 08/19/201848 RPT#: [id number] DC DATE: STATUS: ADM IN [place] [address] [place] [id number] END OF REPORT
[2020-08-19 20:00] VITALS: BP 142/84
[2020-08-19 21:42] LABS: VANCOMYCIN - TROUGH 18.8 ug/mL (10.0-20.0)
[2020-08-19 21:52] LABS: POTASSIUM - SERUM 2.8 mmol/L (3.5-5.1)
--- NOTE | 2020-08-20 03:56 | NUR ---
ALERT AND ORENTED X4 ABLE TO VOICE NEEDS AND WANST TO STAFF. RIGHT IJ WITH ORDER TO D/C AND SEND TIP FOR CULTURE. THIS WAS DONE. IV TO LEFT FOREARM IN PLACE AND PATEN. POTASSIUME LABE RETRUNED WAS 2.8 CRITICAL LOW SAME IT WAs in am. trement per protocol. 20meq given po every two hours x 3. recheck set for 0630 no needs at this time water and call light in reach.
[2020-08-20 04:00] VITALS: BP 135/77
[2020-08-20 05:42] LABS: BASOPHILS 0.7 % (0-2); EOSINOPHILS 11.3 % (0-7); HEMOGLOBIN 10.4 g/dL (12-16); IMMATURE GRANULOCYTES 0.4 % (0-5); LYMPHOCYTES 28.6 % (15-50); MCH 26.7 pg (26.0-34.0); MCHC 32.5 g/dL (31.0-37.0); MCV 82.1 fL (80.0-100.0); MEAN PLATELET VOLUME 9.2 fL (7.4-10.4); MONOCYTES 16.6 % (2-11); NEUTROPHILS 42.4 % (40-80); PLATELET COUNT 254 10x3/uL (130-400); RDW 18.2 % (11.5-14.5); WBC 7.5 10x3/uL (4.8-10.8)
[2020-08-20 05:53] LABS: ALBUMIN 2.9 g/dL (3.4-5.0); ANION GAP 12.8 mmol/L (8-16); BILIRUBIN - TOTAL 9.8 mg/dL (0.2-1.3); CARBON DIOXIDE 29.4 mmol/L (21.0-32.0); POTASSIUM - SERUM 3.2 mmol/L (3.5-5.1); PROTEIN - SERUM 4.6 g/dL (6.4-8.2)
[2020-08-20 08:00] VITALS: BP 136/73
--- NOTE | 2020-08-20 09:30 | MORECARE ---
CASE MANAGEMENT DISCHARGE SUMMARY PATIENT: IRENE CARTER UNIT: [id number] ADM DATE: 08/13/20 AGE: 55 : 69 SEX: F ROOM/BED: D.2235 AUTHOR: JESSIE,DOC PHYSICIAN: REFERRING PHYSICIAN: TEQUILA MOTTA MD DATE OF SERVICE: 08/20/20 Discharge Plan Patient Name: IRENE CARTER Facility: [facility]:[place] : 1965 Planned Disposition: Anticipated Discharge Date: Discharge Date: Expected LOS: Initial Reviewer: [email or web address] Initial Review Date: 08/14/2020 Generated: 08/20/20 10:30 am Comments DCP- Discharge Planning Updated by [email or web address]: Sheyla Wiggins on 08/19/20 5:[address] LATE ENTRY 08/17/[address] ELLIS AND AT THIS TIME HE DOESN'T THINK PATIENT NEEDS TO GO TO [facility]. PATIENT IS MUCH IMPROVED AND WILL TRANSFER TO FLOOR. DCP- Discharge Planning Updated by [email or web address]: Roseline Yeboah on 08/19/20 2:[address] Patient Name: IRENE CARTER Admission Status: ER Accout number: [id number] Admission Date: 08-13-2020 : 1965 Admission Diagnosis:HEPATIC FAILURE, UNSPECIFIED WITHOUT COMA Attending: MADDY Current LOS: 6 Anticipated DC Date: Planned Disposition: Primary Insurance: MEDICAID [place] Discharge Planning Comments: I SPOKE WITH DR. GABRIEL BARBOSA'S OFFICE AND HE WILL NOT HAVE ANYTHING AVAILABLE UNTIL AFTER Nov. WE WILL NEED TO FAX A REFERRAL AND CLINICALS TO HIS OFFICE AT [phone] AND PHONE NUMBER [phone] IF PATIENT WOULD LIKE AN APPOINTMENT AT THE FIRST OF THE YEAR. CM TO FOLLOW NEEDED. News Anchor: Roseline Yeboah DCP- Discharge Planning Updated by [email or web address]: Caitlyn Levy on 08/14/20 10:[address] CM called [facility] call center and spoke with Aydee and gave her the information along with Dr. Motta's phone number and number to ED. She states she will have the MD call Dr. Motta and have her on the transfer list. CM will continue to follow and assist with discharge planning/needs. 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 I spoke with the patient and she is agreeable to transfer to [facility] in or [facility]. I spoke with Anne at [facility] and she states they do not have a mud plant operator at [facility], only at [facility]. I called the [facility] physician transfer number [phone] and received a voice mail. I gave them information and to call me back at my number. I faxed clinical to [phone]. CM will continue to follow and assist with discharge planning/needs. News Anchor: Caitlyn Cam Last DP export: 08/19/20 5:49 Patient Name: IRENE CARTER Page 94545 at 0930 All edits/amendments must be made on the electronic document DICTATION DATE: 08/20/20929 MICROFILMER: CARMEL 08/20/20929 RPT#: [id number] DC DATE: STATUS: ADM IN [facility] [address] [place] [id number] END OF REPORT
--- NOTE | 2020-08-20 09:44 | NUR ---
PT RESTING IN BED WITH EYES CLOSED. AWAKENS UPON NAME BEING CALLED. REPORTS PAIN 3/10 AT THIS TIME. DRESSINGS C/D/I TO ABDOMEN. IV TO LEFT FOREARM SALINE LOC'D. SITE WITHOUT REDNESS OR EDEMA. YELLOW COMPLEXION NOTED TO FACIAL AND ABDOMEN AREA. DENIES FURTHER NEEDS AT THIS TIME. CL WITHIN REACH. ENCOURAGED TO CALL WITH NEEDS. CONTINUE POC
[2020-08-20 14:13] VITALS: BP 134/87
--- NOTE | 2020-08-20 14:16 | NUR ---
Nutrition follow-up: Pt receiving a regular diet PO intake was 100% of some meals but has decreased in the last few days. Labs reviewed Wt: 236# Will continue to provide food choices and honor food preferences. RDN following.
--- NOTE | 2020-08-20 15:58 | NUR ---
Rehab Note- Acute Inpatient Rehab prescreen received. THe patient has Medicaid and cannot be admitted to [facility] Acute Inpatient REhab. Thank you for this referral! Kim Rojas RN Clinical Liaison, [facility] Rehab
[2020-08-20 16:44] VITALS: BP 142/75
[2020-08-20 20:00] VITALS: BP 150/79
[2020-08-21 04:00] VITALS: BP 132/75
[2020-08-21 06:27] LABS: BASOPHILS 1.1 % (0-2); EOSINOPHILS 9.7 % (0-7); HEMATOCRIT 32.2 % (36.0-48.0); HEMOGLOBIN 10.5 g/dL (12-16); IMMATURE GRANULOCYTES 0.4 % (0-5); LYMPHOCYTES 26.9 % (15-50); MCH 26.7 pg (26.0-34.0); MCHC 32.6 g/dL (31.0-37.0); MCV 81.9 fL (80.0-100.0); MEAN PLATELET VOLUME 9.6 fL (7.4-10.4); MONOCYTES 13.2 % (2-11); NEUTROPHILS 48.7 % (40-80); PLATELET COUNT 277 10x3/uL (130-400); RBC 3.93 10x6/uL (4.00-5.40); RDW 18.5 % (11.5-14.5); WBC 8.2 10x3/uL (4.8-10.8)
[2020-08-21 06:48] LABS: ALBUMIN 2.8 g/dL (3.4-5.0); ANION GAP 10.4 mmol/L (8-16); BILIRUBIN - TOTAL 8.69 mg/dL (0.2-1.3); CALCIUM 8.6 mg/dL (8.5-10.1); CARBON DIOXIDE 29.3 mmol/L (21.0-32.0); POTASSIUM - SERUM 3.7 mmol/L (3.5-5.1)
[2020-08-21 06:49] LABS: CREATININE - SERUM 1.3 mg/dL (0.6-1.3)
--- NOTE | 2020-08-21 07:45 | NUR ---
PT RESTING IN BED WITH EYES CLOSED. RESP EVEN AND UNLABORED. AWAKENS WITH NAME CALLED. DENIES PAIN AT THIS TIME. SALINE LOC TO LEFT WRIST. DENIES FURTHER NEEDS AT THIS TIME. CL WITHIN REACH. ENCOURAGED TO CALL WITH NEEDS. CONTINUE POC
--- NOTE | 2020-08-21 08:36 | MORECARE ---
CASE MANAGEMENT DISCHARGE SUMMARY PATIENT: IRENE CARTER UNIT: [id number] ADM DATE: 08/13/20 AGE: 55 : 69 SEX: F ROOM/BED: D.2235 AUTHOR: JESSIE,DOC PHYSICIAN: REFERRING PHYSICIAN: TEQUILA MOTTA MD DATE OF SERVICE: 08/21/20 Discharge Plan Patient Name: IRENE CARTER Facility: [facility]:[place] : 1965 Planned Disposition: Anticipated Discharge Date: Discharge Date: Expected LOS: Initial Reviewer: [email or web address] Initial Review Date: 08/14/2020 Generated: 08/21/20 9:35 am Comments DCP- Discharge Planning Updated by [email or web address]: Sheyla Wiggins on 08/19/20 5:[address] LATE ENTRY 08/17/[address] ELLIS AND AT THIS TIME HE DOESN'T THINK PATIENT NEEDS TO GO TO [facility]. PATIENT IS MUCH IMPROVED AND WILL TRANSFER TO FLOOR. DCP- Discharge Planning Updated by [email or web address]: Roseline Yeboah on 08/19/20 2:[address] Patient Name: IRENE CARTER Admission Status: ER Accout number: [id number] Admission Date: 08-13-2020 : 1965 Admission Diagnosis:HEPATIC FAILURE, UNSPECIFIED WITHOUT COMA Attending: MADDY Current LOS: 6 Anticipated DC Date: Planned Disposition: Primary Insurance: MEDICAID [place] Discharge Planning Comments: I SPOKE WITH DR. GABRIEL BARBOSA'S OFFICE AND HE WILL NOT HAVE ANYTHING AVAILABLE UNTIL AFTER Nov. WE WILL NEED TO FAX A REFERRAL AND CLINICALS TO HIS OFFICE AT [phone] AND PHONE NUMBER [phone] IF PATIENT WOULD LIKE AN APPOINTMENT AT THE FIRST OF THE YEAR. CM TO FOLLOW NEEDED. Manager Technical Training: Roseline Yeboah DCP- Discharge Planning Updated by [email or web address]: Caitlyn Levy on 08/14/20 10:[address] CM called [facility] call center and spoke with Aydee and gave her the information along with Dr. Motta's phone number and number to ED. She states she will have the MD call Dr. Motta and have her on the transfer list. CM will continue to follow and assist with discharge planning/needs. DCP- Discharge Planning Updated by [email or web address]: Caitlyn Levy on 08/14/20 10:[address] Patient Name: IRENE CARTER Admission Status: ER Accout number: [id number] Admission Date: 08-13-2020 : 1965 Admission Diagnosis:HEPATIC FAILURE, UNSPECIFIED WITHOUT COMA Attending: MADDY Current LOS: 1 Anticipated DC Date: Planned Disposition: [facility] Primary Insurance: MEDICAID [place] Discharge Planning Comments: CM received a consult for transfer to higher level of care to cad programmer and for sepsis. I spoke with the patient and she is agreeable to transfer to [facility] in or [facility]. I spoke with Anne at [facility] and she states they do not have a cad programmer at [facility], only at [facility]. I called the [facility] physician transfer number [phone] and received a voice mail. I gave them information and to call me back at my number. I faxed clinical to [phone]. CM will continue to follow and assist with discharge planning/needs. Manager Technical Training: Caitlyn Levy External Providers External Provider: OTHER-OTHER Next Contact Date: Service Request Date: Service Type: Resolution: Reviewer: Comments: Last DP export: 08/20/20 8:30 Patient Name: IRENE CARTER Page 39385 at 0836 All edits/amendments must be made on the electronic document DICTATION DATE: 08/21/20834 ROLL TUBE SETTER: CARMEL 08/21/20834 RPT#: [id number] DC DATE: STATUS: ADM IN [facility] [address] [place] [address] END OF REPORT
--- NOTE | 2020-08-21 08:49 | MORECARE ---
CASE MANAGEMENT DISCHARGE SUMMARY PATIENT: IRENE CARTER UNIT: [id number] ADM DATE: 08/13/20 AGE: 55 : [birth year] SEX: F ROOM/BED: D.2235 AUTHOR: KRISH ROMAN PHYSICIAN: REFERRING PHYSICIAN: TEQUILA MOTTA MD DATE OF SERVICE: 08/21/20 Discharge Plan Patient Name: IRENE CARTER Facility: [facility]:[place] : 1965 Planned Disposition: Anticipated Discharge Date: Discharge Date: Expected LOS: Initial Reviewer: [email or web address] Initial Review Date: 08/14/2020 Generated: 08/21/20 9:48 am Comments DCP- Discharge Planning Updated by [email or web address]: Roseline Yeboah on 08/21/20 7:[address] Patient Name: IRENE CARTER Admission Status: ER Accout number: [id number] Admission Date: 08-13-2020 : 1965 Admission Diagnosis:HEPATIC FAILURE, UNSPECIFIED WITHOUT COMA Attending: MADDY Current LOS: 8 Anticipated DC Date: Planned Disposition: Primary Insurance: MEDICAID [place] Discharge Planning Comments: SPOKE WITH DR. GABRIEL VALADEZ'S OFFICE AT [facility] ABOUT APPOINTMENT FOR THIS PATIENT. THEY SAID THEY ARE CURRENTLY WORKING ON IT. I HAVE FAXED A FACE SHEET AND REQUEST TO HIS OFFICE REQUESTING EXPEDITED APPOINTMENT. I AM WAITING CALL BACK WITH A DATE AND TIME OF APPOINTMENT. Branch Office Manager: Roseline Yeboah DCP- Discharge Planning Updated by [email or web address]: Sheyla Wiggins on 08/19/20 5:[address] LATE ENTRY 08/17/[address] ELLIS AND AT THIS TIME HE DOESN'T THINK PATIENT NEEDS TO GO TO [facility]. PATIENT IS MUCH IMPROVED AND WILL TRANSFER TO FLOOR. DCP- Discharge Planning Updated by [email or web address]: Roseline Yeboah on 08/19/20 2:[address] Patient Name: IRENE CARTER Admission Status: ER Accout number: [id number] Admission Date: 08-13-2020 : 1965 Admission Diagnosis:HEPATIC FAILURE, UNSPECIFIED WITHOUT COMA Attending: MADDY Current LOS: 6 Anticipated DC Date: Planned Disposition: Primary Insurance: MEDICAID [place] Discharge Planning Comments: I SPOKE WITH DR. GABRIEL BARBOSA'S OFFICE AND HE WILL NOT HAVE ANYTHING AVAILABLE UNTIL AFTER Nov. WE WILL NEED TO FAX A REFERRAL AND CLINICALS TO HIS OFFICE AT [phone] AND PHONE NUMBER [phone] IF PATIENT WOULD LIKE AN APPOINTMENT AT THE FIRST OF THE YEAR. CM TO FOLLOW NEEDED. Branch Office Manager: Roselnie Yeboah DCP- Discharge Planning Updated by [id number]: Caitlyn Levy on 08/14/20 10:[address] CM called [facility] call center and spoke with Aydee and gave her the information along with Dr. Motta's phone number and number to ED. She states she will have the MD call Dr. Motta and have her on the transfer list. CM will continue to follow and assist with discharge planning/needs. DCP- Discharge Planning Updated by [email or web address]: Caitlyn Levy on 08/14/20 10:[address] Patient Name: IRENE CARTER Admission Status: ER Accout number: [id number] Admission Date: 08-13-2020 : 1965 Admission Diagnosis:HEPATIC FAILURE, UNSPECIFIED WITHOUT COMA Attending: MADDY Current LOS: 1 Anticipated DC Date: Planned Disposition: [facility] Primary Insurance: MEDICAID [place] Discharge Planning Comments: CM received a consult for transfer to higher level of care to life trainer and for sepsis. I spoke with the patient and she is agreeable to transfer to [facility] in or [facility]. I spoke with Anne at [facility] and she states they do not have a life trainer at [facility], only at [facility]. I called the [facility] physician transfer number [phone] and received a voice mail. I gave them information and to call me back at my number. I faxed clinical to [phone]. CM will continue to follow and assist with discharge planning/needs. Branch Office Manager: Caitlyn Levy Last DP export: 08/21/20 7:36 Patient Name: IRENE CARTER Page 49849 at 0849 All edits/amendments must be made on the electronic document DICTATION DATE: 08/21/20847 COMMUNITY RELATIONS LIAISON: CARMEL 08/21/20847 RPT#: [id number] DC DATE: STATUS: ADM IN [facility] [address] [place] [address] END OF REPORT
[2020-08-21 10:41] VITALS: BP 139/86
--- NOTE | 2020-08-21 15:11 | MORECARE ---
CASE MANAGEMENT DISCHARGE SUMMARY PATIENT: IRENE CARTER UNIT: [id number] ADM DATE: 08/13/20 AGE: 55 : [birth year] SEX: F ROOM/BED: D.2235 AUTHOR: KRISH ROMAN PHYSICIAN: REFERRING PHYSICIAN: TEQUILA MOTTA MD DATE OF SERVICE: 08/21/20 Discharge Plan Patient Name: IRENE CARTER Facility: [facility]:[place] : 1965 Planned Disposition: Anticipated Discharge Date: Discharge Date: Expected LOS: Initial Reviewer: [email or web address] Initial Review Date: 08/14/2020 Generated: 08/21/20 4:10 pm DCP- Discharge Planning Updated by [email or web address]: Roseline Yeboah on 08/21/20 7:[address] Patient Name: IRENE CARTER Admission Status: ER Accout number: [id number] Admission Date: 08-13-2020 : 1965 Admission Diagnosis:HEPATIC FAILURE, UNSPECIFIED WITHOUT COMA Attending: MADDY Current LOS: 8 Anticipated DC Date: Planned Disposition: Primary Insurance: MEDICAID [place] Discharge Planning Comments: SPOKE WITH DR. GABRIEL VALADEZ'S OFFICE AT [facility] ABOUT APPOINTMENT FOR THIS PATIENT. THEY SAID THEY ARE CURRENTLY WORKING ON IT. I HAVE FAXED A FACE SHEET AND REQUEST TO HIS OFFICE REQUESTING EXPEDITED APPOINTMENT. I AM WAITING CALL BACK WITH A DATE AND TIME OF APPOINTMENT. Hydraulic Jack Operator: Roseline Yeboah DCP- Discharge Planning Updated by [email or web address]: Sheyla Wiggins on 08/19/20 5:[address] LATE ENTRY 08/17/[address] ELLIS AND AT THIS TIME HE DOESN'T THINK PATIENT NEEDS TO GO TO [facility]. PATIENT IS MUCH IMPROVED AND WILL TRANSFER TO FLOOR. DCP- Discharge Planning Updated by [email or web address]: Roseline Yeboah on 08/19/20 2:[address] Patient Name: IRENE CARTER Admission Status: ER Accout number: [id number] Admission Date: 08-13-2020 : 1965 Admission Diagnosis:HEPATIC FAILURE, UNSPECIFIED WITHOUT COMA Attending: MADDY Current LOS: 6 Anticipated DC Date: Planned Disposition: Primary Insurance: MEDICAID [place] Discharge Planning Comments: I SPOKE WITH DR. GABRIEL BARBOSA'S OFFICE AND HE WILL NOT HAVE ANYTHING AVAILABLE UNTIL AFTER Nov. WE WILL NEED TO FAX A REFERRAL AND CLINICALS TO HIS OFFICE AT [phone] AND PHONE NUMBER [phone] IF PATIENT WOULD LIKE AN APPOINTMENT AT THE FIRST OF THE YEAR. CM TO FOLLOW NEEDED. Hydraulic Jack Operator: Roseline Yeboah DCP- Discharge Planning Updated by [email or web address]: Caitlyn Levy on 08/14/20 10:[address] CM called [facility] call center and spoke with Aydee and gave her the information along with Dr. Motta's phone number and number to ED. She states she will have the MD call Dr. Motta and have her on the transfer list. CM will continue to follow and assist with discharge planning/needs. DCP- Discharge Planning Updated by [email or web address]: Caitlyn Levy on 08/14/20 10:[address] Patient Name: IRENE CARTER Admission Status: ER Accout number: [id number] Admission Date: 08-13-2020 : 1965 Admission Diagnosis:HEPATIC FAILURE, UNSPECIFIED WITHOUT COMA Attending: MADDY Current LOS: 1 Anticipated DC Date: Planned Disposition: [facility] Primary Insurance: MEDICAID [place] Discharge Planning Comments: CM received a consult for transfer to higher level of care to medical collections representative and for sepsis. I spoke with the patient and she is agreeable to transfer to [facility] in or [facility]. I spoke with Anne at [facility] and she states they do not have a medical collections representative at [facility], only at [facility]. I called the [facility] physician transfer number [phone] and received a voice mail. I gave them information and to call me back at my number. I faxed clinical to [phone]. CM will continue to follow and assist with discharge planning/needs. Hydraulic Jack Operator: Caitlyn Levy Last DP export: 08/21/20 7:49 Patient Name: IRENE CARTER Page 06925 at 1511 All edits/amendments must be made on the electronic document DICTATION DATE: 10/16/20 1510 COMMERCIAL CONSTRUCTION ESTIMATOR: CARMEL 08/21/201509 RPT#: [id number] DC DATE: STATUS: ADM IN [facility] [address] [place] [address] END OF REPORT
--- NOTE | 2020-08-21 15:19 | MORECARE ---
CASE MANAGEMENT DISCHARGE SUMMARY PATIENT: IRENE CARTER UNIT: [id number] ADM DATE: 08/13/20 AGE: 55 : 69 SEX: F ROOM/BED: D.2235 AUTHOR: JESSIEDOC PHYSICIAN: REFERRING PHYSICIAN: TEQUILA MOTTA MD DATE OF SERVICE: 08/21/20 Discharge Plan Patient Name: IRENE CARTER Facility: [facility]:[place] : 1965 Planned Disposition: Anticipated Discharge Date: Discharge Date: Expected LOS: Initial Reviewer: [id number] Initial Review Date: 08/14/2020 Generated: 08/21/20 4:18 pm Comments DCP- Discharge Planning Updated by [email or web address]: Roseline Yeboah on 08/21/20 2:[address] Patient Name: IRENE CARTER Admission Status: ER Accout number: [id number] Admission Date: 08-13-2020 : 1965 Admission Diagnosis:HEPATIC FAILURE, UNSPECIFIED WITHOUT COMA Attending: MADDY Current LOS: 8 Anticipated DC Date: Planned Disposition: Primary Insurance: MEDICAID [place] Discharge Planning Comments: SPOKE WITH DR. GABRIEL VALADEZ'S OFFICE AT [facility] ABOUT APPOINTMENT FOR THIS PATIENT. THEY SAID THEY ARE CURRENTLY WORKING ON IT. I HAVE FAXED A FACE SHEET AND REQUEST TO HIS OFFICE REQUESTING EXPEDITED APPOINTMENT. I AM WAITING CALL BACK WITH A DATE AND TIME OF APPOINTMENT. Slurry Man: Roseline Yeboah Appended by Roseline Yeboah on 08/21/2020 15:12 CDT: I JUST GOT OFF PHONE WITH ADAM AT [facility] DR. GERI VALADEZ'S OFFICE, THEY ARE STILL REVIEWING FOR EXPIDITED APPOINTMENT. THE FIRST AVAILABLE THEY HAVE IS DEC 03 BUT THEY ARE LOOKING NOW TO GET SOONER APPOINTMENT. WAITING CALL BACK. DCP- Discharge Planning Updated by [email or web address]: Sheyla Wiggins on 08/19/20 5:[address] LATE ENTRY 08/17/[address] ELLIS AND AT THIS TIME HE DOESN'T THINK PATIENT NEEDS TO GO TO [facility]. PATIENT IS MUCH IMPROVED AND WILL TRANSFER TO FLOOR. DCP- Discharge Planning Updated by [email or web address]: Roseline Yeboah on 08/19/20 2:[address] Patient Name: IRENE CARTER Admission Status: ER Accout number: [id number] Admission Date: 08-13-2020 : 1965 Admission Diagnosis:HEPATIC FAILURE, UNSPECIFIED WITHOUT COMA Attending: MADDY Current LOS: 6 Anticipated DC Date: Planned Disposition: Primary Insurance: MEDICAID [place] Discharge Planning Comments: I SPOKE WITH DR. GABRIEL BARBOSA'S OFFICE AND HE WILL NOT HAVE ANYTHING AVAILABLE UNTIL AFTER Nov. WE WILL NEED TO FAX A REFERRAL AND CLINICALS TO HIS OFFICE AT [phone] AND PHONE NUMBER [phone] IF PATIENT WOULD LIKE AN APPOINTMENT AT THE FIRST OF THE YEAR. CM TO FOLLOW NEEDED. Slurry Man: Roseline Yeboah DCP- Discharge Planning Updated by [id number]: Caitlyn Levy on 08/14/20 10:[address] CM called [facility] call center and spoke with Aydee and gave her the information along with Dr. Motta's phone number and number to ED. She states she will have the MD call Dr. Motta and have her on the transfer list. CM will continue to follow and assist with discharge planning/needs. DCP- Discharge Planning Updated by [email or web address]: Caitlyn Levy on 08/14/20 10:[address] Patient Name: IRENE CARTER Admission Status: ER Accout number: [id number] Admission Date: 08-13-2020 : 1965 Admission Diagnosis:HEPATIC FAILURE, UNSPECIFIED WITHOUT COMA Attending: MADDY Current LOS: 1 Anticipated DC Date: Planned Disposition: [facility] Primary Insurance: MEDICAID [place] Discharge Planning Comments: CM received a consult for transfer to higher level of care to coffee sampler and for sepsis. I spoke with the patient and she is agreeable to transfer to [facility] in or [facility]. I spoke with Anne at [facility] and she states they do not have a coffee sampler at [facility], only at [facility]. I called the [facility] physician transfer number [phone] and received a voice mail. I gave them information and to call me back at my number. I faxed clinical to [phone]. CM will continue to follow and assist with discharge planning/needs. Slurry Man: Caitlyn Arizmendi DP export: 08/21/20 2:11 Patient Name: IRENE CARTER Page 57260 at 1519 All edits/amendments must be made on the electronic document DICTATION DATE: 08/21/201518 AGRICULTURAL EDUCATION TEACHER: CARMEL 08/21/201518 RPT#: [id number] DC DATE: STATUS: ADM IN [facility] [address] [place] [address] END OF REPORT
[2020-08-21 17:28] VITALS: BP 140/62
[2020-08-21 17:30] VITALS: BP 140/62
[2020-08-21 20:30] VITALS: BP 152/90
[2020-08-22 04:30] VITALS: BP 148/87
[2020-08-22 07:07] LABS: BASOPHILS 0.5 % (0-2); EOSINOPHILS 9.1 % (0-7); HEMATOCRIT 31.7 % (36.0-48.0); HEMOGLOBIN 10.5 g/dL (12-16); IMMATURE GRANULOCYTES 0.4 % (0-5); LYMPHOCYTES 22.6 % (15-50); MCH 27.1 pg (26.0-34.0); MCHC 33.1 g/dL (31.0-37.0); MCV 81.9 fL (80.0-100.0); MEAN PLATELET VOLUME 9.9 fL (7.4-10.4); MONOCYTES 15.2 % (2-11); NEUTROPHILS 52.2 % (40-80); PLATELET COUNT 327 10x3/uL (130-400); RBC 3.87 10x6/uL (4.00-5.40); RDW 18.1 % (11.5-14.5); WBC 9.4 10x3/uL (4.8-10.8)
[2020-08-22 07:12] LABS: ALBUMIN 2.8 g/dL (3.4-5.0); ANION GAP 11.2 mmol/L (8-16); BILIRUBIN - TOTAL 6.64 mg/dL (0.2-1.3); CALCIUM 8.8 mg/dL (8.5-10.1); CARBON DIOXIDE 29.3 mmol/L (21.0-32.0); CREATININE - SERUM 1.1 mg/dL (0.6-1.3); POTASSIUM - SERUM 3.5 mmol/L (3.5-5.1); PROTEIN - SERUM 5.2 g/dL (6.4-8.2)
--- NOTE | 2020-08-22 07:15 | NUR ---
REC'D IN BED AWAKE AND ALERT. RESP EVEN AND UNLABORED WITH NO DISTRESS NOTED. CAN EXPRESS NEEDS AND WANTS.NO C/O NOTED OR VOICED. ASSESSMENT COMPLETED. C/L IN REACH AT BEDSIDE.
[2020-08-22 08:00] VITALS: BP 148/74
[2020-08-22] MEDS ORDERED: ALDACTONE25 MG PO (12:21)
[2020-08-22] MEDS ORDERED: FLORAJEN3 CAPS460 MG PO (12:22)
[2020-08-22] MEDS ORDERED: LASIX20 MG PO (12:22)
[2020-08-22] MEDS ORDERED: CHRONULAC30 ML PO (12:22)
--- NOTE | 2020-08-22 14:11 | MORECARE ---
CASE MANAGEMENT DISCHARGE SUMMARY PATIENT: IRENE CARTER UNIT: [id number] ADM DATE: 08/13/20 AGE: 55 : [birth year] SEX: F ROOM/BED: D.2235 AUTHOR: JESSIEDOC PHYSICIAN: REFERRING PHYSICIAN: TEQUILA MOTTA MD DATE OF SERVICE: 08/22/20 Discharge Plan Patient Name: IRENE CARTER Facility: [facility]:[place] : 1965 Planned Disposition: Home Health Service Anticipated Discharge Date: Discharge Date: Expected LOS: Initial Reviewer: [email or web address] Initial Review Date: 08/14/2020 Generated: 08/22/20 3:11 pm Comments DCP- Discharge Planning Updated by [email or web address]: Roseline Yeboah on 08/21/20 2:[address] Patient Name: IRENE CARTER Admission Status: ER Accout number: [id number] Admission Date: 08-13-2020 : 1965 Admission Diagnosis:HEPATIC FAILURE, UNSPECIFIED WITHOUT COMA Attending: MADDY Current LOS: 8 Anticipated DC Date: Planned Disposition: Primary Insurance: MEDICAID [place] Discharge Planning Comments: SPOKE WITH DR. GABRIEL VALADEZ'S OFFICE AT [facility] ABOUT APPOINTMENT FOR THIS PATIENT. THEY SAID THEY ARE CURRENTLY WORKING ON IT. I HAVE FAXED A FACE SHEET AND REQUEST TO HIS OFFICE REQUESTING EXPEDITED APPOINTMENT. I AM WAITING CALL BACK WITH A DATE AND TIME OF APPOINTMENT. Sander And Polisher: Roseline Yeboah Appended by Roseline Yeboah on 08/21/2020 15:12 CDT: I JUST GOT OFF PHONE WITH ADAM AT [facility] DR. GERI VALADEZ'S OFFICE, THEY ARE STILL REVIEWING FOR EXPIDITED APPOINTMENT. THE FIRST AVAILABLE THEY HAVE IS DEC 03 BUT THEY ARE LOOKING NOW TO GET SOONER APPOINTMENT. WAITING CALL BACK. DCP- Discharge Planning Updated by [id number]: Sheyla Wiggins on 08/19/20 5:[address] LATE ENTRY 08/17/[address] ELLIS AND AT THIS TIME HE DOESN'T THINK PATIENT NEEDS TO GO TO [facility]. PATIENT IS MUCH IMPROVED AND WILL TRANSFER TO FLOOR. DCP- Discharge Planning Updated by [email or web address]: Roseline Yeboah on 08/19/20 2:[address] Patient Name: IRENE CARTER Admission Status: ER Accout number: [id number] Admission Date: 08-13-2020 : 1965 Admission Diagnosis:HEPATIC FAILURE, UNSPECIFIED WITHOUT COMA Attending: MADDY Current LOS: 6 Anticipated DC Date: Planned Disposition: Primary Insurance: MEDICAID [place] Discharge Planning Comments: I SPOKE WITH DR. GABRIEL BARBOSA'S OFFICE AND HE WILL NOT HAVE ANYTHING AVAILABLE UNTIL AFTER Nov. WE WILL NEED TO FAX A REFERRAL AND CLINICALS TO HIS OFFICE AT [phone] AND PHONE NUMBER [phone] IF PATIENT WOULD LIKE AN APPOINTMENT AT THE FIRST OF THE YEAR. CM TO FOLLOW NEEDED. Sander And Polisher: Roseline Edilia DCP- Discharge Planning Updated by [id number]: Caitlyn Levy on 08/14/20 10:[address] CM called [facility] call center and spoke with Aydee and gave her the information along with Dr. Motta's phone number and number to ED. She states she will have the MD call Dr. Motta and have her on the transfer list. CM will continue to follow and assist with discharge planning/needs. DCP- Discharge Planning Updated by [id number]: Caitlyn Levy on 08/14/20 10:[address] Patient Name: IRENE CARTER Admission Status: ER Accout number: [id number] Admission Date: 08-13-2020 : 1965 Admission Diagnosis:HEPATIC FAILURE, UNSPECIFIED WITHOUT COMA Attending: MADDY Current LOS: 1 Anticipated DC Date: Planned Disposition: [facility] Primary Insurance: MEDICAID [place] Discharge Planning Comments: CM received a consult for transfer to higher level of care to filler spreader and for sepsis. I spoke with the patient and she is agreeable to transfer to [facility] in or [facility]. I spoke with Anne at [facility] and she states they do not have a filler spreader at [facility], only at [facility]. I called the [facility] physician transfer number [phone] and received a voice mail. I gave them information and to call me back at my number. I faxed clinical to [phone]. CM will continue to follow and assist with discharge planning/needs. Sander And Polisher: Caitlyn Levy Last DP export: 08/21/20 2:19 Patient Name: IRENE CARTER Page 15732 at 1411 All edits/amendments must be made on the electronic document DICTATION DATE: 08/22/201410 TONGUE CARRIER: CARMEL 08/22/201410 RPT#: [id number] DC DATE: STATUS: ADM IN [facility] [address] [place] [address] END OF REPORT
--- NOTE | 2020-08-22 14:18 | MORECARE ---
CASE MANAGEMENT DISCHARGE SUMMARY PATIENT: IRENE APONTE UNIT: [id number] ADM DATE: 08/13/20 AGE: 55 : [birth year] SEX: F ROOM/BED: D.2235 AUTHOR: JESSIEDOC PHYSICIAN: REFERRING PHYSICIAN: TEQUILA MOTTA MD DATE OF SERVICE: 08/22/20 Discharge Plan Patient Name: IRENE APONTE Facility: [facility]:[place] : 1965 Planned Disposition: Home Health Service Anticipated Discharge Date: Discharge Date: Expected LOS: Initial Reviewer: [email or web address] Initial Review Date: 08/14/2020 Generated: 08/22/20 3:18 pm Comments DCP- Discharge Planning Updated by [id number]: Roseline Yeboah on 08/21/20 2:[address] Patient Name: IRENE APONTE Admission Status: ER Accout number: [id number] Admission Date: 08-13-2020 : 1965 Admission Diagnosis:HEPATIC FAILURE, UNSPECIFIED WITHOUT COMA Attending: MADDY Current LOS: 8 Anticipated DC Date: Planned Disposition: Primary Insurance: MEDICAID [place] Discharge Planning Comments: SPOKE WITH DR. GABRIEL VALADEZ'S OFFICE AT [facility] ABOUT APPOINTMENT FOR THIS PATIENT. THEY SAID THEY ARE CURRENTLY WORKING ON IT. I HAVE FAXED A FACE SHEET AND REQUEST TO HIS OFFICE REQUESTING EXPEDITED APPOINTMENT. I AM WAITING CALL BACK WITH A DATE AND TIME OF APPOINTMENT. Car Barn Laborer: Roseline Yeboah Appended by Roseline Yeboah on 08/21/2020 15:12 CDT: I JUST GOT OFF PHONE WITH ADAM AT [facility] DR. GERI VALADEZ'S OFFICE, THEY ARE STILL REVIEWING FOR EXPIDITED APPOINTMENT. THE FIRST AVAILABLE THEY HAVE IS DEC 03 BUT THEY ARE LOOKING NOW TO GET SOONER APPOINTMENT. WAITING CALL BACK. DCP- Discharge Planning Updated by [id number]: Sheyla Wiggins on 08/19/20 5:[address] LATE ENTRY 08/17/[address] ELLIS AND AT THIS TIME HE DOESN'T THINK PATIENT NEEDS TO GO TO [facility]. PATIENT IS MUCH IMPROVED AND WILL TRANSFER TO FLOOR. DCP- Discharge Planning Updated by [id number]: Roseline Yeboah on 08/19/20 2:[address] Patient Name: IRENE APONTE Admission Status: ER Accout number: [id number] Admission Date: 08-13-2020 : 1965 Admission Diagnosis:HEPATIC FAILURE, UNSPECIFIED WITHOUT COMA Attending: MADDY Current LOS: 6 Anticipated DC Date: Planned Disposition: Primary Insurance: MEDICAID [place] Discharge Planning Comments: I SPOKE WITH DR. GABRIEL BARBOSA'S OFFICE AND HE WILL NOT HAVE ANYTHING AVAILABLE UNTIL AFTER Nov. WE WILL NEED TO FAX A REFERRAL AND CLINICALS TO HIS OFFICE AT [phone] AND PHONE NUMBER [phone] IF PATIENT WOULD LIKE AN APPOINTMENT AT THE FIRST OF THE YEAR. CM TO FOLLOW NEEDED. Car Barn Laborer: Roseline Edilia DCP- Discharge Planning Updated by [email or web address]: Caitlyn Levy on 08/14/20 10:[address] CM called [facility] call center and spoke with Aydee and gave her the information along with Dr. Motta's phone number and number to ED. She states she will have the MD call Dr. Motta and have her on the transfer list. CM will continue to follow and assist with discharge planning/needs. DCP- Discharge Planning Updated by [id number]: Caitlyn Levy on 08/14/20 10:[address] Patient Name: IRENE APONTE Admission Status: ER Accout number: [id number] Admission Date: 08-13-2020 : 1965 Admission Diagnosis:HEPATIC FAILURE, UNSPECIFIED WITHOUT COMA Attending: MADDY Current LOS: 1 Anticipated DC Date: Planned Disposition: [facility] Primary Insurance: MEDICAID [place] Discharge Planning Comments: CM received a consult for transfer to higher level of care to warp knit operator and for sepsis. I spoke with the patient and she is agreeable to transfer to [facility] in or [facility]. I spoke with Anne at [facility] and she states they do not have a warp knit operator at [facility], only at [facility]. I called the [facility] physician transfer number [phone] and received a voice mail. I gave them information and to call me back at my number. I faxed clinical to [phone]. CM will continue to follow and assist with discharge planning/needs. Car Barn Laborer: Caitlyn Levy [facility] - Discharge Planning Initial Assessment Updated by [id number]: Felton Mcgee on 08/22/20 2:13 pm * PCP Dr. Bello * Pharmacy [facility] on [address] * Preadmission Environment Home with Family * ADLs Independent * Equipment Oxygen * List name and contact numbers for known caregivers / representatives who currently or will assist patient after discharge: spouse, Rivas Aponte [phone] * Verbal permission to speak to the caregivers and representatives has been obtained from the patient. Yes * Community resources currently utilized None * Please name any agencies selected above. none * Additional services required to return to the preadmission environment? Yes * Can the patient safely return to the preadmission environment? Yes * Has this patient been hospitalized within the prior 30 days at any hospital? Yes Last DP export: 08/22/20 1:11 Patient Name: IRENE APONTE Page 66567 at 1418 All edits/amendments must be made on the electronic document DICTATION DATE: 08/22/201417 BAND MAKER: CARMEL 08/22/201417 RPT#: [id number] DC DATE: STATUS: ADM IN [facility] [address] [place] [address] END OF REPORT
--- NOTE | 2020-08-22 14:26 | MORECARE ---
CASE MANAGEMENT DISCHARGE SUMMARY PATIENT: IRENE APONTE UNIT: [id number] ADM DATE: 08/13/20 AGE: 55 : 69 SEX: F ROOM/BED: D.2235 AUTHOR: JESSIE,KRISH PHYSICIAN: REFERRING PHYSICIAN: TEQUILA MOTTA MD DATE OF SERVICE: 08/22/20 Discharge Plan Patient Name: IRENE APONTE Facility: [facility]:[place] : 1965 Planned Disposition: Home Health Service Anticipated Discharge Date: Discharge Date: Expected LOS: Initial Reviewer: [id number] Initial Review Date: 08/14/2020 Generated: 08/22/20 3:25 pm Comments DCP- Discharge Planning Updated by [email or web address]: Felton Mcgee on 08/22/20 1:[address] CM met with patient for DC planning. Patient is in agreement with DC Plan. Patient lives at Home with her spouse, Rivas Aponte ([phone]). Patient has multiple steps to enter her home but states that it is safe. PCP: Dr. Bello. Pharmacy: [facility] on [address]. DME: oxygen through [facility]. Emergency contact: Rivas Aponte (Spouse). CM discussed HHS, OP Therapy, SNF, Rehab. Patient states that she cannot remember the name of her HHS. directs [facility] with this DC. Patient states she would like to continue with her HHS but would try [facility]. TAMMY signed for same. CM notified Carol, with [facility], . Will fax clinicals to [phone]. Patient voices no other needs at this time. CM will follow and assist PRN. DCP- Discharge Planning Updated by [id number]: Roseline Yeboah on 08/21/20 2:[address] Patient Name: IRENE APONTE Admission Status: ER Accout number: [id number] Admission Date: 08-13-2020 : 1965 Admission Diagnosis:HEPATIC FAILURE, UNSPECIFIED WITHOUT COMA Attending: MADDY Current LOS: 8 Anticipated DC Date: Planned Disposition: Primary Insurance: MEDICAID [place] Discharge Planning Comments: SPOKE WITH DR. GABRIEL VALADEZ'S OFFICE AT [facility] ABOUT APPOINTMENT FOR THIS PATIENT. THEY SAID THEY ARE CURRENTLY WORKING ON IT. I HAVE FAXED A FACE SHEET AND REQUEST TO HIS OFFICE REQUESTING EXPEDITED APPOINTMENT. I AM WAITING CALL BACK WITH A DATE AND TIME OF APPOINTMENT. Offset Label Rewinder: Roseline Yeboah Appended by Roseline Yeboah on 08/21/2020 15:12 CDT: I JUST GOT OFF PHONE WITH ADAM AT [facility] DR. GERI VALADEZ'S OFFICE, THEY ARE STILL REVIEWING FOR EXPIDITED APPOINTMENT. THE FIRST AVAILABLE THEY HAVE IS DEC 03 BUT THEY ARE LOOKING NOW TO GET SOONER APPOINTMENT. WAITING CALL BACK. DCP- Discharge Planning Updated by [id number]: Sheyla Wiggins on 08/19/20 5:[address] LATE ENTRY 08/17/[address] ELLIS AND AT THIS TIME HE DOESN'T THINK PATIENT NEEDS TO GO TO [facility]. PATIENT IS MUCH IMPROVED AND WILL TRANSFER TO FLOOR. DCP- Discharge Planning Updated by [id number]: Roseline Yeboah on 08/19/20 2:[address] Patient Name: IRENE APONTE Admission Status: ER Accout number: [id number] Admission Date: 08-13-2020 : 1965 Admission Diagnosis:HEPATIC FAILURE, UNSPECIFIED WITHOUT COMA Attending: MADDY Current LOS: 6 Anticipated DC Date: Planned Disposition: Primary Insurance: MEDICAID [place] Discharge Planning Comments: I SPOKE WITH DR. GABRIEL BARBOSA'S OFFICE AND HE WILL NOT HAVE ANYTHING AVAILABLE UNTIL AFTER Nov. WE WILL NEED TO FAX A REFERRAL AND CLINICALS TO HIS OFFICE AT [phone] AND PHONE NUMBER [phone] IF PATIENT WOULD LIKE AN APPOINTMENT AT THE FIRST OF THE YEAR. CM TO FOLLOW NEEDED. Offset Label Rewinder: Roseline Yeboah DCP- Discharge Planning Updated by [email or web address]: Caitlyn Levy on 08/14/20 10:[address] CM called [facility] call center and spoke with Aydee and gave her the information along with Dr. Motta's phone number and number to ED. She states she will have the MD call Dr. Motta and have her on the transfer list. CM will continue to follow and assist with discharge planning/needs. DCP- Discharge Planning Updated by [email or web address]: Caitlyn Levy on 08/14/20 10:[address] Patient Name: IRENE APONTE Admission Status: ER Accout number: [id number] Admission Date: 08-13-2020 : 1965 Admission Diagnosis:HEPATIC FAILURE, UNSPECIFIED WITHOUT COMA Attending: MADDY Current LOS: 1 Anticipated DC Date: Planned Disposition: [facility] Primary Insurance: MEDICAID [place] Discharge Planning Comments: CM received a consult for transfer to higher level of care to construction equipment mechanic helper and for sepsis. I spoke with the patient and she is agreeable to transfer to [facility] in or [facility]. I spoke with Anne at [facility] and she states they do not have a construction equipment mechanic helper at [facility], only at [facility]. I called the [facility] physician transfer number [phone] and received a voice mail. I gave them information and to call me back at my number. I faxed clinical to [phone]. CM will continue to follow and assist with discharge planning/needs. Offset Label Rewinder: Caitlyn Levy [facility] Initial Assessment Updated by [email or web address]: Felton Mcgee on 08/22/20 2:13 pm * PCP Dr. Bello * Pharmacy [facility] [address] * Preadmission Environment Home with Family * ADLs Independent * Equipment Oxygen * List name and contact numbers for known caregivers / representatives who currently or will assist patient after discharge: spouse, Rivas Aponte [phone] * Verbal permission to speak to the caregivers and representatives has been obtained from the patient. Yes * Community resources currently utilized None * Please name any agencies selected above. none * Additional services required to return to the preadmission environment? Yes * Can the patient safely return to the preadmission environment? Yes * Has this patient been hospitalized within the prior 30 days at any hospital? Yes External Providers External Provider: [facility] Next Contact Date: Service Request Date: Service Type: Resolution: Reviewer: Comments: Last DP export: 08/22/20 1:18 Patient Name: IRENE APONTE Page 16689 at 142 All edits/amendments must be made on the electronic document DICTATION DATE: 08/22/20 7693 PLATE WORKER HELPER: CARMEL 08/22/201424 RPT#: [id number] DC DATE: STATUS: ADM IN [facility] [address] [place] [address] END OF REPORT
--- NOTE | 2020-08-22 15:14 | NUR ---
DC HOME AT THIS TIME IN STABLE CONDITION. NO C/O NOTED OR VOICED. VOICED UNDERSTANDING OF DC INSTRUCTION. PT TOOK ALL PERSONAL BELONGING WITH HER.
--- NOTE | 2020-08-22 15:39 | MORECARE ---
CASE MANAGEMENT DISCHARGE SUMMARY PATIENT: IRENE APONTE UNIT: [id number] ADM DATE: 08/13/20 AGE: 55 : 69 SEX: F ROOM/BED: D.8495 AUTHOR: JESSIE,DOC PHYSICIAN: REFERRING PHYSICIAN: TEQUILA MOTTA MD DATE OF SERVICE: 08/22/20 Discharge Plan Patient Name: IRENE APONTE Facility: [facility]:[place] : 1965 Planned Disposition: Home Health Service Anticipated Discharge Date: Discharge Date: 08/22/2020 Expected LOS: Initial Reviewer: [id number] Initial Review Date: 08/14/2020 Generated: 08/22/20 4:38 pm Comments DCP- Discharge Planning Updated by [id number]: Felton Mcgee on 08/22/20 2:[address] 1511 Spoke with patient and patient remembered that [facility] is the HHS she has. Phone call to [facility] to confirm receipt of clinicals. No receipt. Will refax to verified fax number [phone]. CM will follow and assist PRN. DCP- Discharge Planning Updated by [id number]: Felton Mcgee on 08/22/20 1:[address] CM met with patient for DC planning. Patient is in agreement with DC Plan. Patient lives at Home with her spouse, Rivas Aponte ([phone]). Patient has multiple steps to enter her home but states that it is safe. PCP: Dr. Bello. [facility]. DME: oxygen through [facility]. Emergency contact: Rivas Aponte (Spouse). CM discussed HHS, OP Therapy, SNF, Rehab. Patient states that she cannot remember the name of her HHS. directs [facility] with this DC. Patient states she would like to continue with her HHS but would try [facility]. TAMMY signed for same. CM notified Carol, with [facility], . Will fax clinicals to [phone]. Patient voices no other needs at this time. CM will follow and assist PRN. DCP- Discharge Planning Updated by [id number]: Roseline Yeboah on 08/21/20 2:[address] Patient Name: IRENE APONTE Admission Status: ER Accout number: [id number] Admission Date: 08-13-2020 : 1965 Admission Diagnosis:HEPATIC FAILURE, UNSPECIFIED WITHOUT COMA Attending: MADDY Current LOS: 8 Anticipated DC Date: Planned Disposition: Primary Insurance: MEDICAID [place] Discharge Planning Comments: SPOKE WITH DR. GABRIEL VALADEZ'S OFFICE AT [facility] ABOUT APPOINTMENT FOR THIS PATIENT. THEY SAID THEY ARE CURRENTLY WORKING ON IT. I HAVE FAXED A FACE SHEET AND REQUEST TO HIS OFFICE REQUESTING EXPEDITED APPOINTMENT. I AM WAITING CALL BACK WITH A DATE AND TIME OF APPOINTMENT. Automation And Controls Manager: Roseline Yeboah Appended by Roseline Yeboah on 08/21/2020 15:12 CDT: I JUST GOT OFF PHONE WITH ADAM AT [facility] DR. GERI VALADEZ'S OFFICE, THEY ARE STILL REVIEWING FOR EXPIDITED APPOINTMENT. THE FIRST AVAILABLE THEY HAVE IS DEC 03 BUT THEY ARE LOOKING NOW TO GET SOONER APPOINTMENT. WAITING CALL BACK. DCP- Discharge Planning Updated by [id number]: Sheyla Pizanor on 08/19/20 5:[address] LATE ENTRY 08/17/[address] ELLIS AND AT THIS TIME HE DOESN'T THINK PATIENT NEEDS TO GO TO [facility]. PATIENT IS MUCH IMPROVED AND WILL TRANSFER TO FLOOR. DCP- Discharge Planning Updated by [id number]: Roseline Yeboah on 08/19/20 2:[address] Patient Name: IRENE APONTE Admission Status: ER Accout number: [id number] Admission Date: 08-13-2020 : 1965 Admission Diagnosis:HEPATIC FAILURE, UNSPECIFIED WITHOUT COMA Attending: MADDY Current LOS: 6 Anticipated DC Date: Planned Disposition: Primary Insurance: MEDICAID [place] Discharge Planning Comments: I SPOKE WITH DR. GABRIEL BARBOSA'S OFFICE AND HE WILL NOT HAVE ANYTHING AVAILABLE UNTIL AFTER Nov. WE WILL NEED TO FAX A REFERRAL AND CLINICALS TO HIS OFFICE AT [phone] AND PHONE NUMBER [phone] IF PATIENT WOULD LIKE AN APPOINTMENT AT THE FIRST OF THE YEAR. CM TO FOLLOW NEEDED. Automation And Controls Manager: Roseline Yeboah DCP- Discharge Planning Updated by [id number]: Caitlyn Levy on 08/14/20 10:[address] CM called [facility] call center and spoke with Aydee and gave her the information along with Dr. Motta's phone number and number to ED. She states she will have the MD call Dr. Motta and have her on the transfer list. CM will continue to follow and assist with discharge planning/needs. DCP- Discharge Planning Updated by [id number]: Caitlyn Levy on 08/14/20 10:[address] Patient Name: IRENE APONTE Admission Status: ER Accout number: [id number] Admission Date: 08-13-2020 : 1965 Admission Diagnosis:HEPATIC FAILURE, UNSPECIFIED WITHOUT COMA Attending: MADDY Current LOS: 1 Anticipated DC Date: Planned Disposition: [facility] Primary Insurance: MEDICAID [place] Discharge Planning Comments: CM received a consult for transfer to higher level of care to bottom wheeler and for sepsis. I spoke with the patient and she is agreeable to transfer to [facility] in or [facility]. I spoke with Anne at [facility] and she states they do not have a bottom wheeler at [facility], only at [facility]. I called the [facility] physician transfer number [phone] and received a voice mail. I gave them information and to call me back at my number. I faxed clinical to [phone]. CM will continue to follow and assist with discharge planning/needs. Automation And Controls Manager: Caitlyn Levy DCPIA - Discharge Planning Initial Assessment Updated by [id number]: Felton Mcgee on 08/22/20 2:13 pm * PCP Dr. Bello * Pharmacy [facility] * Preadmission Environment Home with Family * ADLs Independent * Equipment Oxygen * List name and contact numbers for known caregivers / representatives who currently or will assist patient after discharge: spouse, Rivas Aponte [phone] * Verbal permission to speak to the caregivers and representatives has been obtained from the patient. Yes * Community resources currently utilized None * Please name any agencies selected above. none * Additional services required to return to the preadmission environment? Yes * Can the patient safely return to the preadmission environment? Yes * Has this patient been hospitalized within the prior 30 days at any hospital? Yes Coverage Notice Reviewer: [id number] - Felton Mcgee Notice Issued Date-Time: 08/22/2020 13:40 Notice Type: Patient Choice Letter Notice Delivered To: Patient Relationship to Patient: Self Client Professional Name: Delivery Method: HAND - Hand Delivered Sejal Days: Prior Verbal Notification: Recipient Understood Notice: Yes Recipient Signature: Yes Med Rec Note Co-signed by Attending: Coverage Notice Comment: [facility] HHS Last DP export: 08/22/20 1:26 Patient Name: IRENE APONTE Page [id number] at 1539 All edits/amendments must be made on the electronic document DICTATION DATE: 08/22/208 HEAD SULFIDE OPERATOR: CARMEL 08/22/20 1538 RPT#: [id number] DC DATE:08/22/20 STATUS: DIS IN [facility] [address] [place] [address] END OF REPORT
--- NOTE | 2020-08-24 09:24 | MORECARE ---
CASE MANAGEMENT DISCHARGE SUMMARY PATIENT: IRENE APONTE UNIT: [id number] ADM DATE: 08/13/20 AGE: 55 : [birth year] SEX: F ROOM/BED: D.2235 AUTHOR: JESSIE,DOC PHYSICIAN: REFERRING PHYSICIAN: TEQUILA MOTTA MD DATE OF SERVICE: 08/24/20 Discharge Plan Patient Name: IREEN APONTE Facility: [facility]:[place] : 1965 Planned Disposition: Home Health Service Anticipated Discharge Date: Discharge Date: 08/22/2020 Expected LOS: Initial Reviewer: [email or web address] Initial Review Date: 08/14/2020 Generated: 08/24/20 10:24 am Comments DCP- Discharge Planning Updated by [email or web address]: Felton Mcgee on 08/22/20 2:[address] 1511 Spoke with patient and patient remembered that [facility] is the HHS she has. Phone call to [facility] to confirm receipt of clinicals. No receipt. Will refax to verified fax number [phone]. CM will follow and assist PRN. DCP- Discharge Planning Updated by [email or web address]: Felton Mcgee on 08/22/20 1:[address] CM met with patient for DC planning. Patient is in agreement with DC Plan. Patient lives at Home with her spouse, Rivas Aponte ([phone]). Patient has multiple steps to enter her home but states that it is safe. PCP: Dr. Bello. [facility] [address]. DME: oxygen through [facility]. Emergency contact: Rivas Aponte (Spouse). CM discussed HHS, OP Therapy, SNF, Rehab. Patient states that she cannot remember the name of her HHS. directs [facility] with this DC. Patient states she would like to continue with her HHS but would try Care [facility]. TAMMY signed for same. CM notified Carol, with [facility], . Will fax clinicals to [phone]. Patient voices no other needs at this time. CM will follow and assist PRN. DCP- Discharge Planning Updated by [id number]: Roseline Yeboah on 08/21/20 2:[address] Patient Name: IRENE APONTE Admission Status: ER Accout number: [id number] Admission Date: 08-13-2020 : 1965 Admission Diagnosis:HEPATIC FAILURE, UNSPECIFIED WITHOUT COMA Attending: MADDY Current LOS: 8 Anticipated DC Date: Planned Disposition: Primary Insurance: MEDICAID [place] Discharge Planning Comments: SPOKE WITH DR. GABRIEL VALADEZ'S OFFICE AT [facility] ABOUT APPOINTMENT FOR THIS PATIENT. THEY SAID THEY ARE CURRENTLY WORKING ON IT. I HAVE FAXED A FACE SHEET AND REQUEST TO HIS OFFICE REQUESTING EXPEDITED APPOINTMENT. I AM WAITING CALL BACK WITH A DATE AND TIME OF APPOINTMENT. Automotive Mechanical Engineer: Roseline Yeboah Appended by Roseline Yeboah on 08/21/2020 15:12 CDT: I JUST GOT OFF PHONE WITH ADAM AT [facility] DR. GERI VALADEZ'S OFFICE, THEY ARE STILL REVIEWING FOR EXPIDITED APPOINTMENT. THE FIRST AVAILABLE THEY HAVE IS DEC 03 BUT THEY ARE LOOKING NOW TO GET SOONER APPOINTMENT. WAITING CALL BACK. DCP- Discharge Planning Updated by [id number]: Sheyla Pizanor on 08/19/20 5:[address] LATE ENTRY 08/17/[address] ELLIS AND AT THIS TIME HE DOESN'T THINK PATIENT NEEDS TO GO TO [facility]. PATIENT IS MUCH IMPROVED AND WILL TRANSFER TO FLOOR. DCP- Discharge Planning Updated by [id number]: Roseline Yeboah on 08/19/20 2:[address] Patient Name: IRENE APONTE Admission Status: ER Accout number: [id number] Admission Date: 08-13-2020 : 1965 Admission Diagnosis:HEPATIC FAILURE, UNSPECIFIED WITHOUT COMA Attending: MADDY Current LOS: 6 Anticipated DC Date: Planned Disposition: Primary Insurance: MEDICAID [place] Discharge Planning Comments: I SPOKE WITH DR. GABRIEL BARBOSA'S OFFICE AND HE WILL NOT HAVE ANYTHING AVAILABLE UNTIL AFTER Nov. WE WILL NEED TO FAX A REFERRAL AND CLINICALS TO HIS OFFICE AT [phone] AND PHONE NUMBER [phone] IF PATIENT WOULD LIKE AN APPOINTMENT AT THE FIRST OF THE YEAR. CM TO FOLLOW NEEDED. Automotive Mechanical Engineer: Roseline Yeboah DCP- Discharge Planning Updated by [id number]: Caitlyn Levy on 08/14/20 10:[address] CM called [facility] call center and spoke with Aydee and gave her the information along with Dr. Motta's phone number and number to ED. She states she will have the MD call Dr. Motta and have her on the transfer list. CM will continue to follow and assist with discharge planning/needs. DCP- Discharge Planning Updated by [id number]: Caitlyn Levy on 08/14/20 10:[address] Patient Name: IRENE APONTE Admission Status: ER Accout number: [id number] Admission Date: 08-13-2020 : 1965 Admission Diagnosis:HEPATIC FAILURE, UNSPECIFIED WITHOUT COMA Attending: MADDY Current LOS: 1 Anticipated DC Date: Planned Disposition: [facility] Primary Insurance: MEDICAID [place] Discharge Planning Comments: CM received a consult for transfer to higher level of care to senior firewall engineer and for sepsis. I spoke with the patient and she is agreeable to transfer to [facility] in or [facility]. I spoke with Anne at [facility] and she states they do not have a senior firewall engineer at [facility], only at [facility]. I called the [facility] physician transfer number [phone] and received a voice mail. I gave them information and to call me back at my number. I faxed clinical to [phone]. CM will continue to follow and assist with discharge planning/needs. Automotive Mechanical Engineer: Caitlyn Levy DCPIA - Discharge Planning Initial Assessment Updated by [id number]: Felton Mcgee on 08/22/20 2:13 pm * PCP Dr. Bello * Pharmacy [facility] [address] * Preadmission Environment Home with Family * ADLs Independent * Equipment Oxygen * List name and contact numbers for known caregivers / representatives who currently or will assist patient after discharge: spouse, Rivas Aponte [phone] * Verbal permission to speak to the caregivers and representatives has been obtained from the patient. Yes * Community resources currently utilized None * Please name any agencies selected above. none * Additional services required to return to the preadmission environment? Yes * Can the patient safely return to the preadmission environment? Yes * Has this patient been hospitalized within the prior 30 days at any hospital? Yes Coverage Notice Reviewer: [id number] - Felton Mcgee Notice Issued Date-Time: 08/22/2020 13:40 Notice Type: Patient Choice Letter Notice Delivered To: Patient Relationship to Patient: Self Overhead Line Worker Name: Delivery Method: HAND - Hand Delivered Sejal Days: Prior Verbal Notification: Recipient Understood Notice: Yes Recipient Signature: Yes Med Rec Note Co-signed by Attending: Coverage Notice Comment: [facility] HHS Last DP export: 08/22/20 2:39 Patient Name: IRENE APONTE Page 37223 at 0924 All edits/amendments must be made on the electronic document DICTATION DATE: 08/24/20923 MANAGER DRUG SAFETY: CARMEL 08/24/20923 RPT#: [id number] DC DATE:08/22/20 STATUS: DIS IN [facility] [address] [place] [address] END OF REPORT
== END 2020-08-22 15:16 | disposition home health service (06) | DRG 871 ==
LOC: D.ER 18:37 → D.CVICU 22:21 → D.EDHOLD 22:21 → D.CVICU 08-15 12:02 → D.MS 08-17 16:16
PROVIDERS: Emergency Medicine; Family Medicine; Internal Medicine Gastroenterology; Internal Medicine Nephrology; Specialist; ADMIT Family Medicine; ATTEND Family Medicine
PROC: 05HM33Z Insertion of Infusion Device into Right Internal Jugular Vein, Percutaneous Approach (ICD-10-PCS; principal; 2020-08-15)
PROC: 0FB03ZX Excision of Liver, Percutaneous Approach, Diagnostic (ICD-10-PCS; 2020-08-19)
PROC: 0W9G3ZZ Drainage of Peritoneal Cavity, Percutaneous Approach (ICD-10-PCS; 2020-08-19 09:30)
DX: A41.9 Sepsis, unspecified organism (principal); K72.00 Acute and subacute hepatic failure without coma; R65.21 Severe sepsis with septic shock; E43 Unspecified severe protein-calorie malnutrition; N17.9 Acute kidney failure, unspecified; E87.1 Hypo-osmolality and hyponatremia; K80.00 Calculus of gallbladder with acute cholecystitis without obstruction; N39.0 Urinary tract infection, site not specified; R18.8 Other ascites; Z68.42 Body mass index [BMI] 45.0-49.9, adult; R53.83 Other fatigue; R51.9 Headache, unspecified; I95.9 Hypotension, unspecified; E80.6 Other disorders of bilirubin metabolism; R74.01 Elevation of levels of liver transaminase levels; R73.9 Hyperglycemia, unspecified; F41.8 Other specified anxiety disorders; D50.9 Iron deficiency anemia, unspecified; G72.89 Other specified myopathies